=== PATIENT | male | born 1955 | race Caucasian/White ===

== ENCOUNTER 2016-08-17 23:49 | Inpatient (IN) | payer MEDICAID, MEDICARE ==
[~2016-08-17] VITALS: Ht 170.2 cm; Wt 72.6 kg
[~2016-08-17 23:49] MED LIST: AMLO2.5T PO; DSS100 PO; FOLI1 PO; LURA40 PO; MULT-1238 PO; PANT40TA25 PO; SERT50TA12 PO; Sertraline Hcl PO; THIA100 PO
[2016-08-18 00:14] VITALS: BP 152/90
[2016-08-18] MEDS ORDERED: QUEtiapine FUMARATE 100 MG TABLET PO PRN (00:45)
[2016-08-18] MEDS ORDERED: ZOLPIDEM TARTRATE 10 MG TABLET PO PRN (00:45)
[2016-08-18 01:15] VITALS: BP 134/70
[2016-08-18] MEDS: LORazepam 2 MG TABLET PO PRN ×3 (01:53→16:22)
[2016-08-18] MEDS ORDERED: PNEUMOCOCCAL VACCINE POLYVALENT 0.5 ML VIAL [PPSV23] IM ONE (05:00)
[2016-08-18 08:09] VITALS: BP 128/84
[2016-08-18 16:00] VITALS: BP 140/85
[2016-08-18] MEDS: THIAMINE HCL 100 MG TABLET PO SCH (16:22)
[2016-08-18] MEDS: DOCUSATE SODIUM 100 MG CAPSULE PO SCH (16:22)
[2016-08-18] MEDS: SERTRALINE HCL 50 MG TABLET PO SCH (20:35)
[2016-08-19 08:32] VITALS: BP 135/69
[2016-08-19 08:34] LABS: BASOPHILS % (AUTO) 0.1 % (0.0-2.0); EOSINOPHILS % (AUTO) 1.1 % (1.0-6.0); HEMATOCRIT 43.3 % (41-53); HEMOGLOBIN 14.4 g/dL (13.5-17.5); LYMPHOCYTES # (AUTO) 1.6 K/uL (1.0-4.8); LYMPHOCYTES % (AUTO) 21.4 % (22.0-44.0); MEAN CORPUSCULAR HEMOGLOBIN 28.4 pg (26.0-34.0); MEAN CORPUSCULAR HGB CONC 33.2 G/dL (31.0-37.0); MEAN CORPUSCULAR VOLUME 85 fL (80-100); MONOCYTES # (AUTO) 0.5 K/uL (0.1-1.0); MONOCYTES % (AUTO) 7.1 % (2.0-9.0); NEUTROPHILS # (AUTO) 5.2 K/uL (1.8-7.7); NEUTROPHILS % (AUTO) 70.3 % (40.0-70.0); PLATELET COUNT (AUTO) 167 K/uL (150-450); RED BLOOD CELL COUNT(AUTO) 5.07 MIL/uL (4.50-5.90); RED CELL DISTRIBUTION WIDTH 13.3 % (11.5-14.5); WHITE BLOOD COUNT (AUTO) 7.5 K/uL (4.5-11.0)
[2016-08-19 09:26] LABS: ALBUMIN 3.2 g/dL (3.4-5.0); BILIRUBIN,TOTAL 0.6 mg/dL (0.1-1.0); CALCIUM, TOTAL 8.5 mg/dL (8.8-10.5); CHOL/HDL RATIO 2.7 (4.2-7.3); CREATINE KINASE MB 6.2 ng/mL (0-5); CREATININE 1.45 mg/dL (0.60-1.30); MAGNESIUM 1.8 mg/dL (1.80-2.40); POTASSIUM 4.2 mmol/L (3.5-5.1); THYROID STIMULATING HORMONE 0.46 uIU/mL (0.36-3.74); TOTAL PROTEIN, SERUM 6.4 g/dL (6.4-8.2)
[2016-08-19] MEDS: THIAMINE HCL 100 MG TABLET PO SCH ×2 (09:39→16:04)
[2016-08-19] MEDS: MULTIVITAMINS, THERAPEUTIC TABLET PO SCH (09:39)
[2016-08-19] MEDS: DOCUSATE SODIUM 100 MG CAPSULE PO SCH ×2 (09:39→16:04)
[2016-08-19] MEDS: ESCITALOPRAM OXALATE 10 MG TABLET PO SCH (09:40)
[2016-08-19] MEDS: FOLIC ACID 1 MG TABLET PO SCH (09:40)
[2016-08-19] MEDS: PANTOPRAZOLE SODIUM 40 MG DR TABLET PO SCH (09:40)
[2016-08-19] MEDS: AmLODIPine BESYLATE 5 MG TABLET PO SCH (09:41)
[2016-08-19] MEDS: LORazepam 2 MG TABLET PO PRN ×2 (10:09→17:07)
[2016-08-19] MEDS ORDERED: *NON-FORMULARY MED [ENTER DRUG, DOSE, FREQ IN COMMENTS] CLINICAL ONE ×2 (12:00)
[2016-08-19] MEDS: HARVONI PO SCH (16:04)
[2016-08-19 16:08] VITALS: BP 125/62
[2016-08-19] MEDS: SERTRALINE HCL 50 MG TABLET PO SCH (20:42)
[2016-08-20 00:28] VITALS: BP 135/80
[2016-08-20 08:50] VITALS: BP 141/73
[2016-08-20] MEDS: HARVONI PO SCH (09:16)
[2016-08-20] MEDS: FOLIC ACID 1 MG TABLET PO SCH (09:16)
[2016-08-20] MEDS: MULTIVITAMINS, THERAPEUTIC TABLET PO SCH (09:16)
[2016-08-20] MEDS: PANTOPRAZOLE SODIUM 40 MG DR TABLET PO SCH (09:16)
[2016-08-20] MEDS: ESCITALOPRAM OXALATE 10 MG TABLET PO SCH (09:16)
[2016-08-20] MEDS: THIAMINE HCL 100 MG TABLET PO SCH (09:17)
[2016-08-20] MEDS: AmLODIPine BESYLATE 5 MG TABLET PO SCH (09:17)
[2016-08-20] MEDS: DOCUSATE SODIUM 100 MG CAPSULE PO SCH (09:17)
[2016-08-20] MEDS ORDERED: ESCI10TA PO (10:05)
[2016-08-20] MEDS ORDERED: LEDI1TAB PO (10:05)
[2016-08-20 12:23] LABS: HEPATITIS Bs ANTIGEN SCREEN P Negative (Negative); HEPATITIS C AB SCREEN >11.0 s/co ratio (0.0-0.9)
== END 2016-08-20 14:30 | disposition home or self-care (01) | DRG 885 ==
LOC: B3A 08-18 00:52 → B2S 08-19 10:20
DX: F31.4 Bipolar disorder, current episode depressed, severe, without psychotic features (principal); R45.851 Suicidal ideations; F19.20 Other psychoactive substance dependence, uncomplicated; N17.9 Acute kidney failure, unspecified; B19.20 Unspecified viral hepatitis C without hepatic coma; K21.9 Gastro-esophageal reflux disease without esophagitis; K59.00 Constipation, unspecified; F10.10 Alcohol abuse, uncomplicated; F17.210 Nicotine dependence, cigarettes, uncomplicated; I12.9 Hypertensive chronic kidney disease with stage 1 through stage 4 chronic kidney disease, or unspecified chronic kidney disease; N18.9 Chronic kidney disease, unspecified; F15.10 Other stimulant abuse, uncomplicated; F12.10 Cannabis abuse, uncomplicated; Z87.19 Personal history of other diseases of the digestive system; Z88.8 Allergy status to other drugs, medicaments and biological substances; Z79.899 Other long term (current) drug therapy; Z87.730 Personal history of (corrected) cleft lip and palate; Z91.5 Personal history of self-harm; Z82.49 Family history of ischemic heart disease and other diseases of the circulatory system; Z80.3 Family history of malignant neoplasm of breast; Z28.21 Immunization not carried out because of patient refusal
CPT/HCPCS: 80074; 82306; 82607; 82746; 83036; 83735; 84439; 84443; 86592; 87081

== ENCOUNTER 2016-08-21 17:40 | Inpatient (IN) | payer MEDICARE ==
[~2016-08-21] VITALS: Ht 171.4 cm; Wt 71.4 kg
[~2016-08-21 17:40] MED LIST changes: +ESCI10TA PO; -FOLI1 PO; +LEDI1TAB PO; -LURA40 PO; -MULT-1238 PO; -SERT50TA12 PO; -THIA100 PO
[2016-08-21 20:21] LABS: BASOPHILS # (AUTO) 0.03 K/uL (0.00-0.20); BASOPHILS % (AUTO) 0.3 % (0.0-2.0); EOSINOPHILS # (AUTO) 0.05 K/uL (0.00-0.70); EOSINOPHILS % (AUTO) 0.55 % (1.0-6.0); HEMATOCRIT 51.1 % (41-53); LYMPHOCYTES # (AUTO) 2.4 K/uL (1.0-4.8); LYMPHOCYTES % (AUTO) 24.5 % (22.0-44.0); MEAN CORPUSCULAR HEMOGLOBIN 28.2 pg (26.0-34.0); MEAN CORPUSCULAR HGB CONC 33.3 G/dL (31.0-37.0); MEAN CORPUSCULAR VOLUME 85 fL (80-100); MONOCYTES # (AUTO) 0.7 K/uL (0.1-1.0); MONOCYTES % (AUTO) 7.3 % (2.0-9.0); NEUTROPHILS # (AUTO) 6.7 K/uL (1.8-7.7); NEUTROPHILS % (AUTO) 67.5 % (40.0-70.0); PLATELET COUNT (AUTO) 232 K/uL (150-450); RED BLOOD CELL COUNT(AUTO) 6.02 MIL/uL (4.50-5.90); RED CELL DISTRIBUTION WIDTH 13.3 % (11.5-14.5); WHITE BLOOD COUNT (AUTO) 9.9 K/uL (4.5-11.0)
[2016-08-21 20:38] LABS: ANION GAP 11 mmol/L (8-16); CALCIUM, TOTAL 9.2 mg/dL (8.8-10.5); CARBON DIOXIDE 27 mmol/L (22-29); CHLORIDE 101 mmol/L (98-107); GLOMERULAR FILTR. RATE CALC > 60 mL/min (>60); POTASSIUM 4.4 mmol/L (3.5-5.1); SODIUM SERUM 139 mmol/L (136-145); UREA NITROGEN, BLOOD 19 mg/dL (7-18)
[2016-08-21 20:43] LABS: ALANINE AMINOTRANSFERASE 29 U/L (12-78); ALBUMIN 4.3 g/dL (3.4-5.0); ASPARTATE AMINOTRANSFERASE 28 U/L (15-37); BILIRUBIN,TOTAL 0.9 mg/dL (0.1-1.0); TOTAL PROTEIN, SERUM 8.4 g/dL (6.4-8.2)
[2016-08-21] MEDS ORDERED: LORazepam 2 MG TABLET PO ONE (21:45)
[2016-08-21] MEDS ORDERED: AmLODIPine BESYLATE 5 MG TABLET PO ONE (21:45)
[2016-08-21] MEDS ORDERED: ZOLPIDEM TARTRATE 10 MG TABLET PO PRN (22:45)
[2016-08-22 01:51] VITALS: BP 128/90
[2016-08-22] MEDS: LORazepam 2 MG TABLET PO PRN ×3 (01:55→15:27)
[2016-08-22 09:00] VITALS: BP 108/59
[2016-08-22] MEDS ORDERED: *PATIENT'S OWN MED [ENTER DRUG, DOSE, FREQUENCY IN COMMENTS] CLINICAL SCH ×2 (09:00)
[2016-08-22] MEDS: LEDIPASVIR PO SCH (11:16)
[2016-08-22] MEDS: SOFOSBUVIR PO SCH (11:16)
[2016-08-22] MEDS: DOCUSATE SODIUM 100 MG CAPSULE PO SCH (15:59)
[2016-08-22 16:05] VITALS: BP 101/68
[2016-08-22 17:42] LABS: APPEARANCE,URINE CLEAR (CLEAR); GLUCOSE, URINE (UA) NEGATIVE (NEGATIVE); KETONES,URINE NEGATIVE (NEGATIVE); LEUKOCYTE ESTERASE ,URINE NEGATIVE (NEGATIVE); OCCULT BLOOD,URINE NEGATIVE (NEGATIVE); PROTEIN,URINE NEGATIVE (NEGATIVE)
[2016-08-22 17:43] LABS: ADD UA MICROSCOPIC NO
[2016-08-23] MEDS ORDERED: ACETAMINOPHEN 325 MG TABLET PO PRN (06:45)
[2016-08-23] MEDS: DOCUSATE SODIUM 100 MG CAPSULE PO SCH ×2 (08:34→17:26)
[2016-08-23] MEDS: PANTOPRAZOLE SODIUM 40 MG DR TABLET PO SCH (08:34)
[2016-08-23] MEDS: ARIPiprazole 5 MG TABLET PO SCH (08:34)
[2016-08-23] MEDS: AmLODIPine BESYLATE 5 MG TABLET PO SCH (08:35)
[2016-08-23] MEDS: SOFOSBUVIR PO SCH (08:36)
[2016-08-23] MEDS: LEDIPASVIR PO SCH (08:36)
[2016-08-23] MEDS: ESCITALOPRAM OXALATE 20 MG TABLET PO SCH (08:36)
[2016-08-23] MEDS ORDERED: [UNRECOGNIZED DRUG - OTHER] PO SCH (09:00)
[2016-08-23 09:32] VITALS: BP 131/77
[2016-08-23] MEDS: QUEtiapine FUMARATE 100 MG TABLET PO PRN (10:33)
[2016-08-23 21:33] VITALS: BP 109/74
[2016-08-24] MEDS: PANTOPRAZOLE SODIUM 40 MG DR TABLET PO SCH (08:34)
[2016-08-24] MEDS: AmLODIPine BESYLATE 5 MG TABLET PO SCH (08:34)
[2016-08-24] MEDS: ARIPiprazole 5 MG TABLET PO SCH (08:35)
[2016-08-24] MEDS: SOFOSBUVIR PO SCH (08:35)
[2016-08-24] MEDS: LEDIPASVIR PO SCH (08:35)
[2016-08-24] MEDS: ESCITALOPRAM OXALATE 20 MG TABLET PO SCH (08:35)
[2016-08-24] MEDS: DOCUSATE SODIUM 100 MG CAPSULE PO SCH ×2 (08:35→16:20)
[2016-08-24 10:26] VITALS: BP 142/83
[2016-08-24] MEDS: QUEtiapine FUMARATE 100 MG TABLET PO PRN (12:36)
[2016-08-24] MEDS ORDERED: GuaiFENesin/D-METHORPHAN [SUGAR-FREE] 200-20MG/10 ML SYRUP UDCUP PO PRN (13:15)
[2016-08-24] MEDS ORDERED: HydrOXYzine PAMOATE 50 MG CAPSULE PO PRN (13:15)
[2016-08-24] MEDS ORDERED: ACETAMINOPHEN 325 MG TABLET PO PRN (13:15)
[2016-08-24] MEDS ORDERED: PROMETHAZINE HCL 25 MG TABLET PO PRN (13:15)
[2016-08-24] MEDS ORDERED: MAGNESIUM HYDROXIDE SUSPENSION 30 ML UDCUP PO PRN (13:15)
[2016-08-24] MEDS ORDERED: LOPERAMIDE HCL 2 MG CAPSULE PO PRN (13:15)
[2016-08-24] MEDS ORDERED: MAG HYDROX/AL HYDROX/SIMETH ES 30 ML SUSPENSION UDCUP PO PRN (13:15)
[2016-08-24] MEDS: THIAMINE HCL 100 MG TABLET PO SCH (16:20)
[2016-08-24 18:00] VITALS: BP 124/76
[2016-08-25] MEDS: SOFOSBUVIR PO SCH (08:18)
[2016-08-25] MEDS: LEDIPASVIR PO SCH (08:18)
[2016-08-25] MEDS: DOCUSATE SODIUM 100 MG CAPSULE PO SCH (08:18)
[2016-08-25] MEDS: ARIPiprazole 10 MG TABLET PO SCH (08:18)
[2016-08-25] MEDS: ESCITALOPRAM OXALATE 20 MG TABLET PO SCH (08:19)
[2016-08-25] MEDS: MULTIVITAMINS WITH MINERALS, THERAPEUTIC TABLET PO SCH (08:19)
[2016-08-25] MEDS: AmLODIPine BESYLATE 5 MG TABLET PO SCH (08:19)
[2016-08-25] MEDS: PANTOPRAZOLE SODIUM 40 MG DR TABLET PO SCH (08:19)
[2016-08-25] MEDS: FOLIC ACID 1 MG TABLET PO SCH (08:19)
[2016-08-25] MEDS: THIAMINE HCL 100 MG TABLET PO SCH (08:20)
[2016-08-25] MEDS ORDERED: IBUPROFEN 600 MG TABLET PO PRN (09:00)
[2016-08-25 09:42] VITALS: BP 154/76
[2016-08-25] MEDS ORDERED: ACETAMINOPHEN 325 MG TABLET PO PRN (11:15)
[2016-08-25] MEDS ORDERED: ARIP10TA14 PO (12:51)
[2016-08-25] MEDS ORDERED: ESCI20TA PO (12:51)
[2016-08-25] MEDS: QUEtiapine FUMARATE 100 MG TABLET PO PRN (18:03)
[2016-08-25 18:21] VITALS: BP 148/90
[2016-08-26] MEDS: MULTIVITAMINS WITH MINERALS, THERAPEUTIC TABLET PO SCH (08:34)
[2016-08-26] MEDS: FOLIC ACID 1 MG TABLET PO SCH (08:35)
[2016-08-26] MEDS: AmLODIPine BESYLATE 5 MG TABLET PO SCH (08:35)
[2016-08-26] MEDS: ESCITALOPRAM OXALATE 20 MG TABLET PO SCH (08:35)
[2016-08-26] MEDS: ARIPiprazole 10 MG TABLET PO SCH (08:35)
[2016-08-26] MEDS: PANTOPRAZOLE SODIUM 40 MG DR TABLET PO SCH (08:35)
[2016-08-26] MEDS: LEDIPASVIR PO SCH (08:36)
[2016-08-26] MEDS: SOFOSBUVIR PO SCH (08:36)
[2016-08-26] MEDS: DOCUSATE SODIUM 100 MG CAPSULE PO SCH (08:36)
[2016-08-26] MEDS: THIAMINE HCL 100 MG TABLET PO SCH (08:37)
[2016-08-26] MEDS ORDERED: MV-M1TAB2 PO (08:41)
[2016-08-26] MEDS ORDERED: FOLI1 PO (08:41)
[2016-08-26] MEDS ORDERED: THIA100 PO (08:41)
[2016-08-26 10:19] VITALS: BP 128/84
== END 2016-08-26 14:15 | disposition home or self-care (01) | DRG 885 ==
LOC: EMS 17:44 → 3EX 22:30
PROVIDERS: ADMIT Psychiatry & Neurology Psychiatry; ATTEND Psychiatry & Neurology Psychiatry
PROC: GZ51ZZZ Individual Psychotherapy, Behavioral (ICD-10-PCS; principal; 2016-08-21)
DX: F33.2 Major depressive disorder, recurrent severe without psychotic features (principal); R45.851 Suicidal ideations; F15.20 Other stimulant dependence, uncomplicated; F25.0 Schizoaffective disorder, bipolar type; B19.20 Unspecified viral hepatitis C without hepatic coma; K21.9 Gastro-esophageal reflux disease without esophagitis; I51.9 Heart disease, unspecified; E78.00 Pure hypercholesterolemia, unspecified; F41.9 Anxiety disorder, unspecified; K59.00 Constipation, unspecified; K80.20 Calculus of gallbladder without cholecystitis without obstruction; K02.9 Dental caries, unspecified; I10 Essential (primary) hypertension; F17.210 Nicotine dependence, cigarettes, uncomplicated; F12.90 Cannabis use, unspecified, uncomplicated; F14.90 Cocaine use, unspecified, uncomplicated; Z71.51 Drug abuse counseling and surveillance of drug abuser; Z91.14 Patient's other noncompliance with medication regimen; Z79.899 Other long term (current) drug therapy; Z88.8 Allergy status to other drugs, medicaments and biological substances; Z98.890 Other specified postprocedural states; Z59.0 Homelessness; Z87.730 Personal history of (corrected) cleft lip and palate; Z91.5 Personal history of self-harm; Z80.3 Family history of malignant neoplasm of breast; Z82.49 Family history of ischemic heart disease and other diseases of the circulatory system
CPT/HCPCS: 87081; 99285; G0480

== ENCOUNTER 2017-11-13 15:49 | Inpatient (IN) | payer MEDICARE ==
[~2017-11-13] VITALS: Ht 170.2 cm; Wt 68.5 kg
[~2017-11-13 15:49] MED LIST changes: +ARIP10TA8 PO; -ESCI10TA PO; +ESCI20TA PO; +FOLI1 PO; +MV-M1TAB2 PO; -Sertraline Hcl PO; +THIA100T67 PO
[2017-11-13 17:08] VITALS: BP 156/91
[2017-11-13] MEDS ORDERED: ZOLPIDEM TARTRATE 10 MG TABLET PO PRN (17:30)
[2017-11-13] MEDS ORDERED: QUEtiapine FUMARATE 100 MG TABLET PO PRN (17:30)
[2017-11-13] MEDS: LORazepam 2 MG TABLET PO PRN (17:53)
[2017-11-13 18:09] VITALS: BP 154/112
[2017-11-13 19:00] VITALS: BP 152/88
[2017-11-13] MEDS: AmLODIPine BESYLATE 5 MG TABLET PO SCH (20:07)
[2017-11-13 21:08] VITALS: BP 143/90
[2017-11-14 08:00] VITALS: BP 155/98
[2017-11-14] MEDS: LORazepam 2 MG TABLET PO PRN (08:01)
[2017-11-14] MEDS: PANTOPRAZOLE SODIUM 40 MG DR TABLET PO SCH (08:02)
[2017-11-14] MEDS: AmLODIPine BESYLATE 5 MG TABLET PO SCH (08:02)
[2017-11-14 08:25] LABS: BASOPHILS % (AUTO) 0.3 % (0.0-2.0); EOSINOPHILS % (AUTO) 1.7 % (1.0-6.0); HEMATOCRIT 48.5 % (41-53); HEMOGLOBIN 17.1 g/dL (13.5-17.5); LYMPHOCYTES # (AUTO) 1.9 K/uL (1.0-4.8); MEAN CORPUSCULAR HEMOGLOBIN 30.1 pg (26.0-34.0); MEAN CORPUSCULAR HGB CONC 35.3 G/dL (31.0-37.0); MEAN CORPUSCULAR VOLUME 85 fL (80-100); MONOCYTES # (AUTO) 0.6 K/uL (0.1-1.0); NEUTROPHILS # (AUTO) 5.6 K/uL (1.8-7.7); PLATELET COUNT (AUTO) 166 K/uL (150-450); RED BLOOD CELL COUNT(AUTO) 5.69 MIL/uL (4.50-5.90); RED CELL DISTRIBUTION WIDTH 13.9 % (11.5-14.5)
[2017-11-14 09:05] LABS: ALANINE AMINOTRANSFERASE 26 U/L (12-78); ALBUMIN 3.6 g/dL (3.4-5.0); ALKALINE PHOSPHATASE 77 U/L (46-116); ANION GAP 6 mmol/L (8-16); ASPARTATE AMINOTRANSFERASE 26 U/L (15-37); BILIRUBIN,TOTAL 0.5 mg/dL (0.1-1.0); CALCIUM, TOTAL 8.4 mg/dL (8.8-10.5); CARBON DIOXIDE 29 mmol/L (22-29); CHLORIDE 104 mmol/L (98-107); CHOL/HDL RATIO 2.7 (4.2-7.3); CHOLESTEROL 154 mg/dL (131-200); FREE T4 (FREE THYROXINE) 0.97 ng/dL (0.76-1.46); GLOMERULAR FILTR. RATE CALC > 60 mL/min (>60); GLUCOSE,RANDOM 90 mg/dL (70-110); HDL CHOLESTEROL 57 mg/dL (40-60); LDL CHOL (CALC.) 83 mg/dL (0-130); POTASSIUM 4.1 mmol/L (3.5-5.1); SODIUM SERUM 139 mmol/L (136-145); THYROID STIMULATING HORMONE 1.31 uIU/mL (0.36-3.74); TRIGLYCERIDES 71 mg/dL (15-150); UREA NITROGEN, BLOOD 18 mg/dL (7-18)
[2017-11-14 10:00] VITALS: BP 140/86
[2017-11-14] MEDS: ESCITALOPRAM OXALATE 20 MG TABLET PO SCH (12:36)
[2017-11-14] MEDS: ARIPiprazole 10 MG TABLET PO SCH (12:36)
[2017-11-14] MEDS ORDERED: ACETAMINOPHEN 325 MG TABLET PO PRN (13:15)
[2017-11-14] MEDS ORDERED: IBUPROFEN 400 MG TABLET PO PRN (13:15)
[2017-11-14 16:20] VITALS: BP 158/89
[2017-11-14] MEDS ORDERED: AMLO-511 PO (17:00)
[2017-11-14] MEDS: THIAMINE HCL 100 MG TABLET PO SCH (17:11)
[2017-11-14] MEDS: DOCUSATE SODIUM 100 MG CAPSULE PO SCH (17:11)
[2017-11-14 20:57] VITALS: BP 134/78
[2017-11-15 06:20] VITALS: BP 140/89
[2017-11-15 08:00] VITALS: BP 150/90
[2017-11-15] MEDS: THIAMINE HCL 100 MG TABLET PO SCH ×2 (08:05→16:41)
[2017-11-15] MEDS: ESCITALOPRAM OXALATE 20 MG TABLET PO SCH (08:05)
[2017-11-15] MEDS: MULTIVITAMINS WITH MINERALS, THERAPEUTIC TABLET PO SCH (08:05)
[2017-11-15] MEDS: DOCUSATE SODIUM 100 MG CAPSULE PO SCH ×2 (08:05→16:41)
[2017-11-15] MEDS: ARIPiprazole 10 MG TABLET PO SCH (08:05)
[2017-11-15] MEDS: AmLODIPine BESYLATE 5 MG TABLET PO SCH (08:05)
[2017-11-15] MEDS: PANTOPRAZOLE SODIUM 40 MG DR TABLET PO SCH (08:05)
[2017-11-15] MEDS: ASPIRIN 81 MG CHEWABLE TABLET PO SCH (08:05)
[2017-11-15] MEDS: FOLIC ACID 1 MG TABLET PO SCH (08:05)
[2017-11-15] MEDS: LORazepam 2 MG TABLET PO PRN (08:06)
[2017-11-15] MEDS ORDERED: [UNRECOGNIZED DRUG - OTHER] PO SCH (09:00)
[2017-11-15] MEDS ORDERED: AmLODIPine BESYLATE 2.5 MG TABLET PO SCH (09:00)
[2017-11-15] MEDS ORDERED: PANTOPRAZOLE SODIUM 40 MG DR TABLET PO SCH (09:00)
[2017-11-15 10:30] VITALS: BP 140/86
[2017-11-15 16:06] VITALS: BP 136/84
[2017-11-16 07:19] VITALS: BP 135/9
[2017-11-16 08:00] VITALS: BP 154/90
[2017-11-16] MEDS: AmLODIPine BESYLATE 5 MG TABLET PO SCH (08:25)
[2017-11-16] MEDS: MULTIVITAMINS WITH MINERALS, THERAPEUTIC TABLET PO SCH (08:25)
[2017-11-16] MEDS: ESCITALOPRAM OXALATE 20 MG TABLET PO SCH (08:25)
[2017-11-16] MEDS: PANTOPRAZOLE SODIUM 40 MG DR TABLET PO SCH (08:25)
[2017-11-16] MEDS: FOLIC ACID 1 MG TABLET PO SCH (08:25)
[2017-11-16] MEDS: DOCUSATE SODIUM 100 MG CAPSULE PO SCH ×2 (08:25→16:44)
[2017-11-16] MEDS: ARIPiprazole 10 MG TABLET PO SCH (08:25)
[2017-11-16] MEDS: LORazepam 2 MG TABLET PO PRN (08:25)
[2017-11-16] MEDS: THIAMINE HCL 100 MG TABLET PO SCH ×2 (08:25→16:44)
[2017-11-16] MEDS: ASPIRIN 81 MG CHEWABLE TABLET PO SCH (08:25)
[2017-11-16 10:30] VITALS: BP 153/85
[2017-11-16] MEDS ORDERED: AmLODIPine BESYLATE 5 MG TABLET PO ONE (11:45)
[2017-11-16 14:11] VITALS: BP 132/82
[2017-11-16 16:04] VITALS: BP 145/88
[2017-11-16 19:53] VITALS: BP 139/81
[2017-11-17 06:21] VITALS: BP 141/89
[2017-11-17 08:13] VITALS: BP 140/81
[2017-11-17] MEDS: ASPIRIN 81 MG CHEWABLE TABLET PO SCH (08:32)
[2017-11-17] MEDS: DOCUSATE SODIUM 100 MG CAPSULE PO SCH ×2 (08:32→16:41)
[2017-11-17] MEDS: ARIPiprazole 10 MG TABLET PO SCH (08:32)
[2017-11-17] MEDS: THIAMINE HCL 100 MG TABLET PO SCH ×2 (08:32→16:41)
[2017-11-17] MEDS: FOLIC ACID 1 MG TABLET PO SCH (08:32)
[2017-11-17] MEDS: PANTOPRAZOLE SODIUM 40 MG DR TABLET PO SCH (08:32)
[2017-11-17] MEDS: ESCITALOPRAM OXALATE 20 MG TABLET PO SCH (08:32)
[2017-11-17] MEDS: MULTIVITAMINS WITH MINERALS, THERAPEUTIC TABLET PO SCH (08:32)
[2017-11-17] MEDS ORDERED: MEGESTROL ACETATE 400 MG/10 ML SUSPENSION UDCUP PO SCH (09:00)
[2017-11-17] MEDS ORDERED: AmLODIPine BESYLATE 10 MG TABLET PO SCH (09:00)
[2017-11-17] MEDS ORDERED: ESCI20TA36 PO (10:42)
[2017-11-17] MEDS ORDERED: ARIP10TA8 PO (10:42)
[2017-11-17] MEDS ORDERED: ASPI81TA87 PO (14:46)
== END 2017-11-17 16:45 | disposition home or self-care (01) | DRG 885 ==
LOC: B2X 17:37
PROVIDERS: ADMIT Psychiatry & Neurology Child & Adolescent Psychiatry; ATTEND Psychiatry & Neurology Child & Adolescent Psychiatry
DX: F33.2 Major depressive disorder, recurrent severe without psychotic features (principal); R45.851 Suicidal ideations; F10.10 Alcohol abuse, uncomplicated; R41.83 Borderline intellectual functioning; F41.9 Anxiety disorder, unspecified; K21.9 Gastro-esophageal reflux disease without esophagitis; I10 Essential (primary) hypertension; K80.20 Calculus of gallbladder without cholecystitis without obstruction; K59.09 Other constipation; B19.20 Unspecified viral hepatitis C without hepatic coma; F12.90 Cannabis use, unspecified, uncomplicated; B18.2 Chronic viral hepatitis C; G62.9 Polyneuropathy, unspecified; E78.5 Hyperlipidemia, unspecified; I25.10 Atherosclerotic heart disease of native coronary artery without angina pectoris; E03.9 Hypothyroidism, unspecified; J44.9 Chronic obstructive pulmonary disease, unspecified; Z88.8 Allergy status to other drugs, medicaments and biological substances; Z87.730 Personal history of (corrected) cleft lip and palate; Z80.3 Family history of malignant neoplasm of breast; Z82.49 Family history of ischemic heart disease and other diseases of the circulatory system
CPT/HCPCS: 83036; 84439; 84443; 86592

== ENCOUNTER 2019-07-17 14:05 | Inpatient (IN) | payer MEDICARE ==
[~2019-07-17] VITALS: Ht 167.6 cm; Wt 68.9 kg
[~2019-07-17 14:05] MED LIST changes: -AMLO2.5T PO; +AMLO5TAB9 PO; +ASPI81TA87 PO; -ESCI20TA PO; +ESCI20TA43 PO; -FOLI1 PO; -LEDI1TAB PO; -MV-M1TAB2 PO; -THIA100T67 PO
[2019-07-17] MEDS ORDERED: QUEtiapine FUMARATE 100 MG TABLET PO PRN (15:45)
[2019-07-17] MEDS ORDERED: ZOLPIDEM TARTRATE 10 MG TABLET PO PRN (15:45)
[2019-07-17 15:54] VITALS: BP 108/72
[2019-07-17 16:45] VITALS: BP 138/89
[2019-07-17] MEDS ORDERED: PNEUMOCOCCAL VACCINE POLYVALENT 0.5 ML VIAL [PPSV23] IM ONE (17:30)
[2019-07-17] MEDS ORDERED: INFLUENZA VIRUS VACCINE QVS 2019-20 (3YR+)/PF 60 MCG/0.5 ML SYRINGE IM ONE (17:30)
[2019-07-17] MEDS: LORazepam 2 MG TABLET PO PRN (20:22)
[2019-07-18 02:35] VITALS: BP 140/83
[2019-07-18] MEDS: LORazepam 2 MG TABLET PO PRN ×2 (02:36→11:45)
[2019-07-18 08:19] VITALS: BP 140/90
[2019-07-18 08:48] LABS: BASOPHILS % (AUTO) 0.4 % (0.0-2.0); EOSINOPHILS % (AUTO) 1.4 % (1.0-6.0); HEMATOCRIT 43.5 % (41-53); HEMOGLOBIN 14.7 g/dL (13.5-17.5); LYMPHOCYTES # (AUTO) 1.6 K/uL (1.0-4.8); LYMPHOCYTES % (AUTO) 27.7 % (22.0-44.0); MEAN CORPUSCULAR HEMOGLOBIN 29.9 pg (26.0-34.0); MEAN CORPUSCULAR HGB CONC 33.8 G/dL (31.0-37.0); MEAN CORPUSCULAR VOLUME 88 fL (80-100); MONOCYTES # (AUTO) 0.5 K/uL (0.1-1.0); MONOCYTES % (AUTO) 8.9 % (2.0-9.0); NEUTROPHILS # (AUTO) 3.5 K/uL (1.8-7.7); NEUTROPHILS % (AUTO) 61.6 % (40.0-70.0); PLATELET COUNT (AUTO) 166 K/uL (150-450); RED BLOOD CELL COUNT(AUTO) 4.92 MIL/uL (4.50-5.90); RED CELL DISTRIBUTION WIDTH 14.1 % (11.5-14.5)
[2019-07-18] MEDS: ASPIRIN 81 MG EC TABLET PO SCH (09:05)
[2019-07-18] MEDS: PANTOPRAZOLE SODIUM 40 MG DR TABLET PO SCH (09:05)
[2019-07-18] MEDS: AmLODIPine BESYLATE 10 MG TABLET PO SCH (09:05)
[2019-07-18 09:21] LABS: ALANINE AMINOTRANSFERASE 27 U/L (12-78); ALBUMIN 3.4 g/dL (3.4-5.0); ALKALINE PHOSPHATASE 80 U/L (46-116); ANION GAP 6 mmol/L (8-16); ASPARTATE AMINOTRANSFERASE 24 U/L (15-37); BILIRUBIN,TOTAL 0.4 mg/dL (0.1-1.0); CALCIUM, TOTAL 8.6 mg/dL (8.8-10.5); CARBON DIOXIDE 30 mmol/L (22-29); CHLORIDE 103 mmol/L (98-107); CHOL/HDL RATIO 2.7 (4.2-7.3); CHOLESTEROL 147 mg/dL (131-200); CREATININE 1.07 mg/dL (0.60-1.30); FREE T4 (FREE THYROXINE) 0.89 ng/dL (0.76-1.46); GLOMERULAR FILTR. RATE CALC > 60 mL/min (>60); GLUCOSE,RANDOM 95 mg/dL (70-110); HDL CHOLESTEROL 55 mg/dL (40-60); LDL CHOL (CALC.) 75 mg/dL (0-130); POTASSIUM 4.1 mmol/L (3.5-5.1); SODIUM SERUM 139 mmol/L (136-145); THYROID STIMULATING HORMONE 1.93 uIU/mL (0.36-3.74); TOTAL PROTEIN, SERUM 6.3 g/dL (6.4-8.2); TRIGLYCERIDES 84 mg/dL (15-150); UREA NITROGEN, BLOOD 25 mg/dL (7-18)
[2019-07-18 09:24] LABS: HEMOGLOBIN A1C 6.1 % (4.5-6.2)
[2019-07-18] MEDS ORDERED: ACETAMINOPHEN 325 MG TABLET PO PRN (10:15)
[2019-07-18] MEDS ORDERED: LOPERAMIDE HCL 2 MG CAPSULE PO PRN (10:15)
[2019-07-18] MEDS ORDERED: PETROLATUM,WHITE 28 GM JELLY TP PRN (10:15)
[2019-07-18] MEDS ORDERED: CloNIDine HCL 0.1 MG TABLET PO PRN (10:15)
[2019-07-18] MEDS ORDERED: DOCUSATE SODIUM 100 MG CAPSULE PO PRN (10:15)
[2019-07-18] MEDS ORDERED: MAG HYDROX/AL HYDROX/SIMETH ES 30 ML SUSPENSION UDCUP PO PRN (10:15)
[2019-07-18] MEDS ORDERED: GuaiFENesin/D-METHORPHAN [SUGAR-FREE] 200-20MG/10 ML SYRUP UDCUP PO PRN (10:15)
[2019-07-18] MEDS ORDERED: MAGNESIUM HYDROXIDE SUSPENSION 30 ML UDCUP PO PRN (10:15)
[2019-07-18] MEDS ORDERED: IBUPROFEN 400 MG TABLET PO PRN (10:15)
[2019-07-18] MEDS ORDERED: NICOTINE 14 MG/24 HOUR PATCH TD PRN (10:15)
[2019-07-18] MEDS ORDERED: ALBUTEROL SULFATE HFA 90 MCG/PUFF 8 GM INHALER IH PRN (10:15)
[2019-07-18] MEDS ORDERED: ONDANSETRON HCL 4 MG TABLET PO PRN (10:15)
[2019-07-18] MEDS: ARIPiprazole 15 MG TABLET PO SCH (11:30)
[2019-07-18] MEDS: ESCITALOPRAM OXALATE 20 MG TABLET PO SCH (11:30)
[2019-07-18 12:30] VITALS: BP 154/101
[2019-07-18 14:00] VITALS: BP 126/88
[2019-07-18 17:58] VITALS: BP 139/86
[2019-07-19 08:23] VITALS: BP 140/90
[2019-07-19] MEDS: ASPIRIN 81 MG EC TABLET PO SCH (08:40)
[2019-07-19] MEDS: ESCITALOPRAM OXALATE 20 MG TABLET PO SCH (08:40)
[2019-07-19] MEDS: PANTOPRAZOLE SODIUM 40 MG DR TABLET PO SCH (08:40)
[2019-07-19] MEDS: AmLODIPine BESYLATE 10 MG TABLET PO SCH (08:40)
[2019-07-19] MEDS: ARIPiprazole 15 MG TABLET PO SCH (08:40)
[2019-07-19 12:50] VITALS: BP 130/80
[2019-07-19 16:09] VITALS: BP 129/69
[2019-07-20 08:33] VITALS: BP 140/87
[2019-07-20] MEDS: PANTOPRAZOLE SODIUM 40 MG DR TABLET PO SCH (08:47)
[2019-07-20] MEDS: ESCITALOPRAM OXALATE 20 MG TABLET PO SCH (08:47)
[2019-07-20] MEDS: AmLODIPine BESYLATE 10 MG TABLET PO SCH (08:47)
[2019-07-20] MEDS: ARIPiprazole 15 MG TABLET PO SCH (08:47)
[2019-07-20] MEDS: ASPIRIN 81 MG EC TABLET PO SCH (08:52)
[2019-07-20 16:12] VITALS: BP 134/91
[2019-07-21 01:30] VITALS: BP 143/66
[2019-07-21 08:33] VITALS: BP 139/82
[2019-07-21] MEDS: PANTOPRAZOLE SODIUM 40 MG DR TABLET PO SCH (09:06)
[2019-07-21] MEDS: AmLODIPine BESYLATE 10 MG TABLET PO SCH (09:06)
[2019-07-21] MEDS: ARIPiprazole 15 MG TABLET PO SCH (09:06)
[2019-07-21] MEDS: ESCITALOPRAM OXALATE 20 MG TABLET PO SCH (09:06)
[2019-07-21] MEDS: ASPIRIN 81 MG EC TABLET PO SCH (09:06)
[2019-07-21] MEDS: LORazepam 2 MG TABLET PO PRN (11:04)
[2019-07-21 16:07] VITALS: BP 132/85
[2019-07-22 00:12] VITALS: BP 144/83
[2019-07-22 08:15] VITALS: BP 139/76
[2019-07-22] MEDS: ESCITALOPRAM OXALATE 20 MG TABLET PO SCH (09:18)
[2019-07-22] MEDS: PANTOPRAZOLE SODIUM 40 MG DR TABLET PO SCH (09:19)
[2019-07-22] MEDS: AmLODIPine BESYLATE 10 MG TABLET PO SCH (09:19)
[2019-07-22] MEDS: ASPIRIN 81 MG EC TABLET PO SCH (09:19)
[2019-07-22] MEDS: ARIPiprazole 15 MG TABLET PO SCH (09:20)
[2019-07-22] MEDS: LORazepam 2 MG TABLET PO PRN (10:37)
[2019-07-22 16:12] VITALS: BP 134/73
[2019-07-23 05:33] VITALS: BP 150/70
[2019-07-23 08:23] VITALS: BP 155/93
[2019-07-23] MEDS: PANTOPRAZOLE SODIUM 40 MG DR TABLET PO SCH (09:00)
[2019-07-23] MEDS: ARIPiprazole 15 MG TABLET PO SCH (09:00)
[2019-07-23] MEDS: AmLODIPine BESYLATE 10 MG TABLET PO SCH (09:00)
[2019-07-23] MEDS: ASPIRIN 81 MG EC TABLET PO SCH (09:00)
[2019-07-23] MEDS: ESCITALOPRAM OXALATE 20 MG TABLET PO SCH (09:00)
[2019-07-23] MEDS: LORazepam 2 MG TABLET PO PRN (10:12)
[2019-07-23 11:12] VITALS: BP 121/60
[2019-07-23 16:06] VITALS: BP 130/83
[2019-07-24 00:56] VITALS: BP 117/68
[2019-07-24] MEDS: LORazepam 2 MG TABLET PO PRN ×2 (01:09→16:54)
[2019-07-24] MEDS: PANTOPRAZOLE SODIUM 40 MG DR TABLET PO SCH (08:12)
[2019-07-24] MEDS: ARIPiprazole 15 MG TABLET PO SCH (08:12)
[2019-07-24] MEDS: AmLODIPine BESYLATE 10 MG TABLET PO SCH (08:12)
[2019-07-24] MEDS: ESCITALOPRAM OXALATE 20 MG TABLET PO SCH (08:13)
[2019-07-24] MEDS: ASPIRIN 81 MG EC TABLET PO SCH (08:13)
[2019-07-24 08:20] VITALS: BP 123/71
[2019-07-24 16:06] VITALS: BP 139/81
[2019-07-25 01:12] VITALS: BP 130/83
[2019-07-25 08:08] VITALS: BP 142/79
[2019-07-25] MEDS: ESCITALOPRAM OXALATE 20 MG TABLET PO SCH (08:32)
[2019-07-25] MEDS: PANTOPRAZOLE SODIUM 40 MG DR TABLET PO SCH (08:32)
[2019-07-25] MEDS: ASPIRIN 81 MG EC TABLET PO SCH (08:32)
[2019-07-25] MEDS: ARIPiprazole 15 MG TABLET PO SCH (08:32)
[2019-07-25] MEDS: AmLODIPine BESYLATE 10 MG TABLET PO SCH (08:32)
[2019-07-25] MEDS: LORazepam 2 MG TABLET PO PRN (15:44)
[2019-07-25 16:08] VITALS: BP 137/72
[2019-07-26 00:20] VITALS: BP 110/63
[2019-07-26] MEDS: LORazepam 2 MG TABLET PO PRN (05:03)
[2019-07-26 08:22] VITALS: BP 129/67
[2019-07-26] MEDS: ASPIRIN 81 MG EC TABLET PO SCH (08:22)
[2019-07-26] MEDS: ESCITALOPRAM OXALATE 20 MG TABLET PO SCH (08:22)
[2019-07-26] MEDS: AmLODIPine BESYLATE 10 MG TABLET PO SCH (08:22)
[2019-07-26] MEDS: PANTOPRAZOLE SODIUM 40 MG DR TABLET PO SCH (08:22)
[2019-07-26] MEDS: ARIPiprazole 15 MG TABLET PO SCH (08:22)
[2019-07-26] MEDS ORDERED: ASPI-728 PO (10:25)
[2019-07-26] MEDS ORDERED: ARIP15TA2 PO (10:25)
[2019-07-26] MEDS ORDERED: PANT40TA25 PO (10:25)
== END 2019-07-26 13:20 | disposition home or self-care (01) | DRG 885 ==
LOC: B2X 16:00
PROVIDERS: ADMIT Psychiatry & Neurology Child & Adolescent Psychiatry; ATTEND Psychiatry & Neurology Child & Adolescent Psychiatry
DX: F33.2 Major depressive disorder, recurrent severe without psychotic features (principal); B18.2 Chronic viral hepatitis C; R45.851 Suicidal ideations; E03.9 Hypothyroidism, unspecified; J44.9 Chronic obstructive pulmonary disease, unspecified; K21.9 Gastro-esophageal reflux disease without esophagitis; K59.00 Constipation, unspecified; I10 Essential (primary) hypertension; F15.90 Other stimulant use, unspecified, uncomplicated; F32.9 Major depressive disorder, single episode, unspecified; F12.90 Cannabis use, unspecified, uncomplicated; F41.9 Anxiety disorder, unspecified; Z87.730 Personal history of (corrected) cleft lip and palate; Z23 Encounter for immunization
CPT/HCPCS: 83036; 84439; 84443; 90686; 90732

== ENCOUNTER 2019-08-21 08:37 | Inpatient (IN) | payer MEDICARE, MEDICAID ==
[~2019-08-21] VITALS: Ht 172.7 cm; Wt 72.3 kg
[~2019-08-21 08:37] MED LIST changes: -ARIP10TA8 PO; +ARIP15TA2 PO; +ASPI-728 PO; -ASPI81TA87 PO; -DSS100 PO
[2019-08-21 09:25] LABS: BASOPHILS % (AUTO) 0.4 % (0.0-2.0); EOSINOPHILS % (AUTO) 0.6 % (1.0-6.0); HEMATOCRIT 49.4 % (41-53); HEMOGLOBIN 16.4 g/dL (13.5-17.5); LYMPHOCYTES # (AUTO) 1.2 K/uL (1.0-4.8); LYMPHOCYTES % (AUTO) 14.1 % (22.0-44.0); MEAN CORPUSCULAR HEMOGLOBIN 29.2 pg (26.0-34.0); MEAN CORPUSCULAR HGB CONC 33.3 G/dL (31.0-37.0); MEAN CORPUSCULAR VOLUME 88 fL (80-100); MONOCYTES # (AUTO) 0.4 K/uL (0.1-1.0); NEUTROPHILS # (AUTO) 6.9 K/uL (1.8-7.7); NEUTROPHILS % (AUTO) 79.9 % (40.0-70.0); RED BLOOD CELL COUNT(AUTO) 5.63 MIL/uL (4.50-5.90); RED CELL DISTRIBUTION WIDTH 13.7 % (11.5-14.5)
[2019-08-21 09:32] LABS: ANION GAP 6 mmol/L (8-16); CALCIUM, TOTAL 9.8 mg/dL (8.8-10.5); CARBON DIOXIDE 30 mmol/L (22-29); CHLORIDE 100 mmol/L (98-107); CREATININE 1.32 mg/dL (0.60-1.30); GLOMERULAR FILTR. RATE CALC 54 mL/min (>60); GLUCOSE,RANDOM 188 mg/dL (70-110); POTASSIUM 4.2 mmol/L (3.5-5.1); SODIUM SERUM 136 mmol/L (136-145); UREA NITROGEN, BLOOD 19 mg/dL (7-18)
[2019-08-21 09:32] LABS: AMPHET/METH SCREEN,URINE POSITIVE (NEGATIVE); BARBITURATE SCREEN, URINE NEGATIVE (NEGATIVE); BENZODIAZEPINES SCREEN,URINE NEGATIVE (NEGATIVE); CANNABINOID SCREEN,URINE POSITIVE (NEGATIVE); COCAINE SCREEN,URINE NEGATIVE (NEGATIVE); METHADONE SCREEN, URINE NEGATIVE (NEGATIVE); OPIATE SCREEN,URINE NEGATIVE (NEGATIVE); PHENCYCLIDINE SCREEN,URINE NEGATIVE (NEGATIVE)
[2019-08-21 09:37] LABS: ALANINE AMINOTRANSFERASE 37 U/L (12-78); ALBUMIN 4.2 g/dL (3.4-5.0); ALKALINE PHOSPHATASE 92 U/L (46-116); ASPARTATE AMINOTRANSFERASE 36 U/L (15-37); BILIRUBIN,TOTAL 0.8 mg/dL (0.1-1.0); TOTAL PROTEIN, SERUM 8.2 g/dL (6.4-8.2)
[2019-08-21 09:40] LABS: PLATELET COUNT (AUTO) 211 K/uL (150-450)
[2019-08-21] MEDS ORDERED: 0.9% SODIUM CHLORIDE 10 ML SYRINGE IVP PRN (10:45)
[2019-08-21] MEDS ORDERED: ACETAMINOPHEN 325 MG TABLET PO PRN ×2 (10:45→11:15)
[2019-08-21] MEDS ORDERED: ONDANSETRON HCL 4 MG/2 ML VIAL IVP PRN (10:45)
[2019-08-21] MEDS ORDERED: GuaiFENesin/D-METHORPHAN [SUGAR-FREE] 200-20MG/10 ML SYRUP UDCUP PO PRN (11:15)
[2019-08-21] MEDS ORDERED: OLANZapine 5 MG RAPDIS TABLET PO PRN (11:15)
[2019-08-21] MEDS ORDERED: TUBERCULIN, PURIFIED PROTEIN DERIVATIVE 5 TU/0.1 ML SYRINGE ID ONE (11:15)
[2019-08-21] MEDS ORDERED: LOPERAMIDE HCL 2 MG CAPSULE PO PRN (11:15)
[2019-08-21] MEDS ORDERED: HydrOXYzine PAMOATE 50 MG CAPSULE PO PRN (11:15)
[2019-08-21] MEDS ORDERED: ZOLPIDEM TARTRATE 10 MG TABLET PO PRN (11:15)
[2019-08-21] MEDS ORDERED: MAG HYDROX/AL HYDROX/SIMETH ES 30 ML SUSPENSION UDCUP PO PRN (11:15)
[2019-08-21] MEDS ORDERED: PROMETHAZINE HCL 25 MG TABLET PO PRN (11:15)
[2019-08-21] MEDS ORDERED: MAGNESIUM HYDROXIDE SUSPENSION 30 ML UDCUP PO PRN (11:15)
[2019-08-21] MEDS ORDERED: AMLO10TA7 PO (11:17)
[2019-08-21 13:38] VITALS: BP 131/82
[2019-08-21] MEDS ORDERED: QUEtiapine FUMARATE 100 MG TABLET PO PRN (14:00)
[2019-08-21] MEDS: LORazepam 2 MG TABLET PO PRN ×2 (14:24→18:44)
[2019-08-21] MEDS: THIAMINE HCL 100 MG TABLET PO SCH (16:48)
[2019-08-21 17:36] VITALS: BP 122/69
[2019-08-21] MEDS ORDERED: QUEtiapine FUMARATE 200 MG TABLET PO SCH (21:00)
[2019-08-22 08:10] VITALS: BP 130/70
[2019-08-22 08:17] LABS: HEMOGLOBIN A1C 5.8 % (3.8-5.6)
[2019-08-22 08:31] LABS: CHOL/HDL RATIO 3.1 (4.2-7.3); FREE T4 (FREE THYROXINE) 1.12 ng/dL (0.76-1.46); THYROID STIMULATING HORMONE 1.56 uIU/mL (0.36-3.74)
[2019-08-22] MEDS ORDERED: ESCITALOPRAM OXALATE 10 MG TABLET PO SCH (09:00)
[2019-08-22] MEDS ORDERED: ARIPiprazole 15 MG TABLET PO SCH (09:00)
[2019-08-22] MEDS: MULTIVITAMINS WITH MINERALS, THERAPEUTIC TABLET PO SCH (09:09)
[2019-08-22] MEDS: FOLIC ACID 1 MG TABLET PO SCH (09:09)
[2019-08-22] MEDS: ASPIRIN 81 MG CHEWABLE TABLET PO SCH (09:09)
[2019-08-22] MEDS: AmLODIPine BESYLATE 10 MG TABLET PO SCH (09:09)
[2019-08-22] MEDS: THIAMINE HCL 100 MG TABLET PO SCH ×2 (09:09→16:30)
[2019-08-22] MEDS: PANTOPRAZOLE SODIUM 40 MG DR TABLET PO SCH (09:15)
[2019-08-22] MEDS: NALTREXONE HCL 50 MG TABLET PO SCH (09:51)
[2019-08-22] MEDS: LORazepam 2 MG TABLET PO PRN (11:59)
[2019-08-22 16:10] VITALS: BP 126/74
[2019-08-22] MEDS ORDERED: QUEtiapine FUMARATE 300 MG TABLET PO SCH (21:00)
[2019-08-23 00:39] VITALS: BP 110/72
[2019-08-23 08:36] VITALS: BP 141/83
[2019-08-23] MEDS: PANTOPRAZOLE SODIUM 40 MG DR TABLET PO SCH (09:06)
[2019-08-23] MEDS: MULTIVITAMINS WITH MINERALS, THERAPEUTIC TABLET PO SCH (09:06)
[2019-08-23] MEDS: AmLODIPine BESYLATE 10 MG TABLET PO SCH (09:07)
[2019-08-23] MEDS: FOLIC ACID 1 MG TABLET PO SCH (09:07)
[2019-08-23] MEDS: QUEtiapine FUMARATE 25 MG TABLET PO SCH ×3 (09:07→16:29)
[2019-08-23] MEDS: NALTREXONE HCL 50 MG TABLET PO SCH (09:07)
[2019-08-23] MEDS: THIAMINE HCL 100 MG TABLET PO SCH ×2 (09:07→16:30)
[2019-08-23] MEDS: ASPIRIN 81 MG CHEWABLE TABLET PO SCH (09:07)
[2019-08-23] MEDS: LORazepam 2 MG TABLET PO PRN ×2 (12:05→12:06)
[2019-08-23 16:27] VITALS: BP 143/73
[2019-08-23] MEDS: QUEtiapine FUMARATE 200 MG TABLET PO SCH (20:31)
[2019-08-24 05:24] VITALS: BP 132/78
[2019-08-24 08:22] VITALS: BP 132/84
[2019-08-24] MEDS: MULTIVITAMINS WITH MINERALS, THERAPEUTIC TABLET PO SCH (09:25)
[2019-08-24] MEDS: PANTOPRAZOLE SODIUM 40 MG DR TABLET PO SCH (09:25)
[2019-08-24] MEDS: NALTREXONE HCL 50 MG TABLET PO SCH (09:25)
[2019-08-24] MEDS: FOLIC ACID 1 MG TABLET PO SCH (09:26)
[2019-08-24] MEDS: AmLODIPine BESYLATE 10 MG TABLET PO SCH (09:26)
[2019-08-24] MEDS: QUEtiapine FUMARATE 25 MG TABLET PO SCH ×3 (09:26→16:55)
[2019-08-24] MEDS: THIAMINE HCL 100 MG TABLET PO SCH ×2 (09:26→16:55)
[2019-08-24] MEDS: ASPIRIN 81 MG CHEWABLE TABLET PO SCH (09:26)
[2019-08-24 16:25] VITALS: BP 133/99
[2019-08-24] MEDS: QUEtiapine FUMARATE 200 MG TABLET PO SCH (21:09)
[2019-08-25 06:18] VITALS: BP 129/73
[2019-08-25 08:07] VITALS: BP 138/97
[2019-08-25] MEDS: PANTOPRAZOLE SODIUM 40 MG DR TABLET PO SCH (09:24)
[2019-08-25] MEDS: MULTIVITAMINS WITH MINERALS, THERAPEUTIC TABLET PO SCH (09:24)
[2019-08-25] MEDS: QUEtiapine FUMARATE 25 MG TABLET PO SCH ×3 (09:24→16:31)
[2019-08-25] MEDS: THIAMINE HCL 100 MG TABLET PO SCH ×2 (09:24→16:36)
[2019-08-25] MEDS: ASPIRIN 81 MG CHEWABLE TABLET PO SCH (09:24)
[2019-08-25] MEDS: NALTREXONE HCL 50 MG TABLET PO SCH (09:24)
[2019-08-25] MEDS: AmLODIPine BESYLATE 10 MG TABLET PO SCH (09:24)
[2019-08-25] MEDS: FOLIC ACID 1 MG TABLET PO SCH (09:25)
[2019-08-25 16:16] VITALS: BP 142/81
[2019-08-25] MEDS: LORazepam 2 MG TABLET PO PRN (16:58)
[2019-08-25] MEDS: QUEtiapine FUMARATE 200 MG TABLET PO SCH (20:40)
[2019-08-26 08:28] VITALS: BP 140/80
[2019-08-26] MEDS: MULTIVITAMINS WITH MINERALS, THERAPEUTIC TABLET PO SCH (09:36)
[2019-08-26] MEDS: ASPIRIN 81 MG CHEWABLE TABLET PO SCH (09:36)
[2019-08-26] MEDS: FOLIC ACID 1 MG TABLET PO SCH (09:36)
[2019-08-26] MEDS: NALTREXONE HCL 50 MG TABLET PO SCH (09:36)
[2019-08-26] MEDS: PANTOPRAZOLE SODIUM 40 MG DR TABLET PO SCH (09:36)
[2019-08-26] MEDS: AmLODIPine BESYLATE 10 MG TABLET PO SCH (09:36)
[2019-08-26] MEDS: THIAMINE HCL 100 MG TABLET PO SCH ×2 (09:36→16:34)
[2019-08-26] MEDS: QUEtiapine FUMARATE 25 MG TABLET PO SCH ×3 (09:36→16:34)
[2019-08-26 16:19] VITALS: BP 138/82
[2019-08-26] MEDS: QUEtiapine FUMARATE 200 MG TABLET PO SCH (20:28)
[2019-08-27 05:48] VITALS: BP 131/72
[2019-08-27 08:29] VITALS: BP 134/85
[2019-08-27] MEDS: MULTIVITAMINS WITH MINERALS, THERAPEUTIC TABLET PO SCH (08:50)
[2019-08-27] MEDS: AmLODIPine BESYLATE 10 MG TABLET PO SCH (08:50)
[2019-08-27] MEDS: QUEtiapine FUMARATE 25 MG TABLET PO SCH ×2 (08:50→12:03)
[2019-08-27] MEDS: THIAMINE HCL 100 MG TABLET PO SCH (08:50)
[2019-08-27] MEDS: FOLIC ACID 1 MG TABLET PO SCH (08:50)
[2019-08-27] MEDS: ASPIRIN 81 MG CHEWABLE TABLET PO SCH (08:50)
[2019-08-27] MEDS: PANTOPRAZOLE SODIUM 40 MG DR TABLET PO SCH (08:50)
[2019-08-27] MEDS: NALTREXONE HCL 50 MG TABLET PO SCH (08:51)
[2019-08-27] MEDS ORDERED: NALT50TA6 PO (13:33)
[2019-08-27] MEDS ORDERED: QUET200T PO (13:33)
[2019-08-27] MEDS ORDERED: QUET25TA PO (13:33)
[2019-08-27 16:23] VITALS: BP 143/80
== END 2019-08-27 18:51 | disposition home or self-care (01) | DRG 885 ==
LOC: EMS 08:38 → B2X 11:04
PROVIDERS: ADMIT Psychiatry & Neurology Psychiatry; ATTEND Psychiatry & Neurology Psychiatry
DX: F25.0 Schizoaffective disorder, bipolar type (principal); I11.0 Hypertensive heart disease with heart failure; B18.2 Chronic viral hepatitis C; R45.851 Suicidal ideations; E03.9 Hypothyroidism, unspecified; E78.00 Pure hypercholesterolemia, unspecified; F12.90 Cannabis use, unspecified, uncomplicated; F15.90 Other stimulant use, unspecified, uncomplicated; F17.200 Nicotine dependence, unspecified, uncomplicated; F41.9 Anxiety disorder, unspecified; I50.9 Heart failure, unspecified; J44.9 Chronic obstructive pulmonary disease, unspecified; K21.9 Gastro-esophageal reflux disease without esophagitis; K59.00 Constipation, unspecified; Q35.9 Cleft palate, unspecified; Z59.0 Homelessness; Z79.82 Long term (current) use of aspirin; Z91.19 Patient's noncompliance with other medical treatment and regimen; Z91.5 Personal history of self-harm; F32.9 Major depressive disorder, single episode, unspecified
CPT/HCPCS: 83036; 84439; 84443; 86592; 87081; G0480

== ENCOUNTER 2019-09-22 01:32 | Inpatient (IN) | payer MEDICARE, MEDICAID ==
[~2019-09-22] VITALS: Ht 172.7 cm; Wt 95.7 kg
[~2019-09-22 01:32] MED LIST changes: +AMLO10TA7 PO; -AMLO5TAB9 PO; -ARIP15TA2 PO; -ESCI20TA43 PO; +NALT50TA6 PO; +QUET200T PO; +QUET25TA PO
[2019-09-22] MEDS ORDERED: ALBUTEROL SULFATE HFA 90 MCG/PUFF 8 GM INHALER IH ONE (01:45)
[2019-09-22] MEDS ORDERED: IPRATROPIUM BROMIDE HFA 17 MCG/PUFF 12.9 GM INHALER IH ONE (01:45)
[2019-09-22] MEDS ORDERED: MethylPREDNISolone SOD SUCC 125 MG/2 ML VIAL IVP ONE (01:45)
[2019-09-22] MEDS ORDERED: MAGNESIUM SULFATE 2 GM/WATER 50 ML IV ONE (01:45)
[2019-09-22 02:05] LABS: BASOPHILS % (AUTO) 0.3 % (0.0-2.0); EOSINOPHILS % (AUTO) 2.6 % (1.0-6.0); LYMPHOCYTES # (AUTO) 2.1 K/uL (1.0-4.8); MEAN CORPUSCULAR HEMOGLOBIN 28.7 pg (26.0-34.0); MEAN CORPUSCULAR HGB CONC 33.3 G/dL (31.0-37.0); MEAN CORPUSCULAR VOLUME 86 fL (80-100); MONOCYTES # (AUTO) 0.6 K/uL (0.1-1.0); MONOCYTES % (AUTO) 8.7 % (2.0-9.0); NEUTROPHILS # (AUTO) 3.6 K/uL (1.8-7.7); NEUTROPHILS % (AUTO) 56.4 % (40.0-70.0); PLATELET COUNT (AUTO) 184 K/uL (150-450); RED BLOOD CELL COUNT(AUTO) 5.23 MIL/uL (4.50-5.90); RED CELL DISTRIBUTION WIDTH 13.3 % (11.5-14.5)
[2019-09-22 02:16] LABS: ANION GAP 4 mmol/L (8-16); CALCIUM, TOTAL 8.9 mg/dL (8.8-10.5); CARBON DIOXIDE 30 mmol/L (22-29); CHLORIDE 102 mmol/L (98-107); CREATININE 1.15 mg/dL (0.60-1.30); GLOMERULAR FILTR. RATE CALC > 60 mL/min (>60); GLUCOSE,RANDOM 135 mg/dL (70-110); POTASSIUM 4.3 mmol/L (3.5-5.1); SODIUM SERUM 136 mmol/L (136-145); UREA NITROGEN, BLOOD 16 mg/dL (7-18)
[2019-09-22 02:24] LABS: B-TYPE NATRIURETIC PEPTIDE 327 pg/mL (0-100)
[2019-09-22 02:41] LABS: ALANINE AMINOTRANSFERASE 25 U/L (12-78); ALBUMIN 3.9 g/dL (3.4-5.0); ALKALINE PHOSPHATASE 95 U/L (46-116); ASPARTATE AMINOTRANSFERASE 22 U/L (15-37); BILIRUBIN,TOTAL 0.4 mg/dL (0.1-1.0); CREATINE KINASE, TOTAL ONLY 116 U/L (39-308); TOTAL PROTEIN, SERUM 7.1 g/dL (6.4-8.2)
[2019-09-22] MEDS ORDERED: ONDANSETRON HCL 4 MG/2 ML VIAL IVP PRN (05:30)
[2019-09-22] MEDS ORDERED: ACETAMINOPHEN 325 MG TABLET PO PRN ×2 (05:30→08:30)
[2019-09-22 06:32] VITALS: BP 151/106
[2019-09-22 07:54] VITALS: BP 157/100
[2019-09-22] MEDS ORDERED: ALBUTEROL SULFATE 2.5 MG/0.5 ML NEB SOLUTION NEB PRN (08:30)
[2019-09-22] MEDS ORDERED: IPRATROPIUM BROMIDE 0.5 MG/2.5 ML NEB SOLUTION NEB PRN (08:30)
[2019-09-22] MEDS ORDERED: PredniSONE 10 MG TABLET PO SCH (09:00)
[2019-09-22] MEDS ORDERED: DOCUSATE SODIUM 100 MG CAPSULE PO SCH (09:00)
[2019-09-22] MEDS ORDERED: FAMOTIDINE 20 MG TABLET PO SCH (09:00)
[2019-09-22] MEDS ORDERED: AmLODIPine BESYLATE 10 MG TABLET PO SCH (09:00)
[2019-09-22 11:14] VITALS: BP 148/96
[2019-09-22] MEDS ORDERED: HEPARIN SODIUM,PORCINE 5,000 UNITS/ML VIAL SQ SCH (16:00)
== END 2019-09-22 12:43 | disposition left against medical advice (07) | DRG 192 ==
LOC: EMS 01:32 → 6N 05:35
PROVIDERS: ADMIT Internal Medicine; ATTEND Internal Medicine
DX: J44.1 Chronic obstructive pulmonary disease with (acute) exacerbation (principal); F20.9 Schizophrenia, unspecified; E78.00 Pure hypercholesterolemia, unspecified; F31.9 Bipolar disorder, unspecified; F19.10 Other psychoactive substance abuse, uncomplicated; Z53.29 Procedure and treatment not carried out because of patient's decision for other reasons; Z88.8 Allergy status to other drugs, medicaments and biological substances; Z82.49 Family history of ischemic heart disease and other diseases of the circulatory system; I11.0 Hypertensive heart disease with heart failure; I50.9 Heart failure, unspecified
CPT/HCPCS: 93005; J2930; J3475; J3535

== ENCOUNTER 2019-12-22 09:44 | Emergency (ER) | payer MEDICAID, MEDICARE ==
[~2019-12-22] VITALS: Ht 172.7 cm; Wt 77.3 kg
[~2019-12-22 09:44] MED LIST changes: +AMLO-258 PO; -AMLO10TA7 PO; -NALT50TA6 PO; +PANT-31 PO; -PANT40TA25 PO
[2019-12-22 10:46] LABS: BASOPHILS % (AUTO) 0.3 % (0.0-2.0); EOSINOPHILS % (AUTO) 0.2 % (1.0-6.0); HEMATOCRIT 49.4 % (41-53); HEMOGLOBIN 16.7 g/dL (13.5-17.5); LYMPHOCYTES # (AUTO) 1.4 K/uL (1.0-4.8); LYMPHOCYTES % (AUTO) 11.4 % (22.0-44.0); MEAN CORPUSCULAR HEMOGLOBIN 29.1 pg (26.0-34.0); MEAN CORPUSCULAR HGB CONC 33.8 G/dL (31.0-37.0); MEAN CORPUSCULAR VOLUME 86 fL (80-100); MONOCYTES # (AUTO) 0.9 K/uL (0.1-1.0); MONOCYTES % (AUTO) 7.5 % (2.0-9.0); NEUTROPHILS # (AUTO) 9.7 K/uL (1.8-7.7); NEUTROPHILS % (AUTO) 80.6 % (40.0-70.0); PLATELET COUNT (AUTO) 243 K/uL (150-450); RED BLOOD CELL COUNT(AUTO) 5.74 MIL/uL (4.50-5.90); RED CELL DISTRIBUTION WIDTH 13.8 % (11.5-14.5)
[2019-12-22 10:57] LABS: CALCIUM, TOTAL 9.7 mg/dL (8.8-10.5); CARBON DIOXIDE 29 mmol/L (22-29); CHLORIDE 100 mmol/L (98-107); CREATININE 1.14 mg/dL (0.60-1.30); GLOMERULAR FILTR. RATE CALC > 60 mL/min (>60); GLUCOSE,RANDOM 133 mg/dL (70-110); POTASSIUM 4.2 mmol/L (3.5-5.1); UREA NITROGEN, BLOOD 30 mg/dL (7-18)
[2019-12-22 11:00] LABS: ALANINE AMINOTRANSFERASE 30 U/L (12-78); ALBUMIN 4.9 g/dL (3.4-5.0); ALKALINE PHOSPHATASE 97 U/L (46-116); ANION GAP 11 mmol/L (8-16); ASPARTATE AMINOTRANSFERASE 29 U/L (15-37); BILIRUBIN,TOTAL 0.5 mg/dL (0.1-1.0); SODIUM SERUM 140 mmol/L (136-145); TOTAL PROTEIN, SERUM 9.2 g/dL (6.4-8.2)
[2019-12-22 13:30] VITALS: BP 158/95
[2019-12-22] MEDS ORDERED: QUEtiapine FUMARATE 25 MG TABLET PO ONE (13:30)
== END 2019-12-22 14:00 | disposition home or self-care (01) ==
LOC: EMS 09:49
DX: F32.9 Major depressive disorder, single episode, unspecified (principal); F17.210 Nicotine dependence, cigarettes, uncomplicated; J44.9 Chronic obstructive pulmonary disease, unspecified; I11.9 Hypertensive heart disease without heart failure; E78.00 Pure hypercholesterolemia, unspecified; F20.9 Schizophrenia, unspecified; F12.90 Cannabis use, unspecified, uncomplicated; F19.90 Other psychoactive substance use, unspecified, uncomplicated; Z59.0 Homelessness; Z88.8 Allergy status to other drugs, medicaments and biological substances; Z79.82 Long term (current) use of aspirin
CPT/HCPCS: 36415; 80053; 85025; 99284; 99406; G0480

== ENCOUNTER 2020-01-13 09:05 | Inpatient (IN) | payer MEDICARE ==
[~2020-01-13] VITALS: Ht 172.7 cm; Wt 79.8 kg
[2020-01-13] MEDS ORDERED: QUEtiapine FUMARATE 100 MG TABLET PO PRN (09:45)
[2020-01-13] MEDS ORDERED: ZOLPIDEM TARTRATE 10 MG TABLET PO PRN (09:45)
[2020-01-13 10:17] VITALS: BP 164/79
[2020-01-13 11:30] VITALS: BP 157/77
[2020-01-13] MEDS: AmLODIPine BESYLATE 10 MG TABLET PO SCH (13:00)
[2020-01-13] MEDS: QUEtiapine FUMARATE 25 MG TABLET PO SCH ×2 (13:00→17:00)
[2020-01-13] MEDS: LORazepam 2 MG TABLET PO PRN (13:00)
[2020-01-13 17:41] VITALS: BP 136/72
[2020-01-13] MEDS: QUEtiapine FUMARATE 200 MG TABLET PO SCH (20:06)
[2020-01-14 05:06] VITALS: BP 128/64
[2020-01-14 07:25] LABS: BASOPHILS % (AUTO) 0.3 % (0.0-2.0); EOSINOPHILS % (AUTO) 2.5 % (1.0-6.0); HEMOGLOBIN 13.2 g/dL (13.5-17.5); LYMPHOCYTES # (AUTO) 1.8 K/uL (1.0-4.8); LYMPHOCYTES % (AUTO) 36.2 % (22.0-44.0); MEAN CORPUSCULAR HGB CONC 34.7 G/dL (31.0-37.0); MEAN CORPUSCULAR VOLUME 86 fL (80-100); MONOCYTES # (AUTO) 0.5 K/uL (0.1-1.0); MONOCYTES % (AUTO) 9.8 % (2.0-9.0); NEUTROPHILS # (AUTO) 2.6 K/uL (1.8-7.7); NEUTROPHILS % (AUTO) 51.2 % (40.0-70.0); PLATELET COUNT (AUTO) 141 K/uL (150-450); RED CELL DISTRIBUTION WIDTH 13.6 % (11.5-14.5)
[2020-01-14 07:40] LABS: APPEARANCE,URINE TURBID (CLEAR); GLUCOSE, URINE (UA) NEGATIVE (NEGATIVE); KETONES,URINE TRACE mg/dL (NEGATIVE); LEUKOCYTE ESTERASE ,URINE NEGATIVE (NEGATIVE); NITRATE,URINE NEGATIVE (NEGATIVE); OCCULT BLOOD,URINE NEGATIVE (NEGATIVE); PROTEIN,URINE TRACE (NEGATIVE); UROBILINOGEN,URINE 0.2 mg/dL (<=1.0)
[2020-01-14 07:43] LABS: BILIRUBIN,URINE PRELIM. POSITIVE (NEGATIVE)
[2020-01-14 07:46] LABS: ALANINE AMINOTRANSFERASE 36 U/L (12-78); ALBUMIN 3.5 g/dL (3.4-5.0); ALKALINE PHOSPHATASE 57 U/L (46-116); ANION GAP 5 mmol/L (8-16); ASPARTATE AMINOTRANSFERASE 43 U/L (15-37); BILIRUBIN,TOTAL 0.8 mg/dL (0.1-1.0); CALCIUM, TOTAL 8.6 mg/dL (8.8-10.5); CARBON DIOXIDE 30 mmol/L (22-29); CHLORIDE 104 mmol/L (98-107); CHOL/HDL RATIO 3.2 (4.2-7.3); CHOLESTEROL 145 mg/dL (131-200); FREE T4 (FREE THYROXINE) 1.15 ng/dL (0.76-1.46); GLOMERULAR FILTR. RATE CALC > 60 mL/min (>60); GLUCOSE,RANDOM 115 mg/dL (70-110); HDL CHOLESTEROL 46 mg/dL (40-60); LDL CHOL (CALC.) 82 mg/dL (0-130); POTASSIUM 3.6 mmol/L (3.5-5.1); SODIUM SERUM 139 mmol/L (136-145); THYROID STIMULATING HORMONE 0.96 uIU/mL (0.36-3.74); TOTAL PROTEIN, SERUM 6.5 g/dL (6.4-8.2); TRIGLYCERIDES 87 mg/dL (15-150); UREA NITROGEN, BLOOD 26 mg/dL (7-18)
[2020-01-14 07:48] LABS: HEMOGLOBIN A1C 5.8 % (3.8-5.6)
[2020-01-14 07:49] LABS: AMPHET/METH SCREEN,URINE POSITIVE (NEGATIVE); BARBITURATE SCREEN, URINE NEGATIVE (NEGATIVE); BENZODIAZEPINES SCREEN,URINE NEGATIVE (NEGATIVE); CANNABINOID SCREEN,URINE POSITIVE (NEGATIVE); COCAINE SCREEN,URINE NEGATIVE (NEGATIVE); METHADONE SCREEN, URINE NEGATIVE (NEGATIVE); OPIATE SCREEN,URINE NEGATIVE (NEGATIVE); PHENCYCLIDINE SCREEN,URINE NEGATIVE (NEGATIVE)
[2020-01-14 08:02] LABS: AMORPHOUS SEDIMENT,UR Many /LPF (None Seen); BACTERIA,URINE Few /HPF (None Seen); CALCIUM OXALATE CRYSTALS,UR Few /LPF (None Seen); RBC,URINE None Seen /HPF (0-2); SQUAMOUS EPITHELIAL CELL,UR None Seen /LPF (None Seen); WBC,URINE None Seen /HPF (0-5)
[2020-01-14] MEDS: ASPIRIN 81 MG CHEWABLE TABLET PO SCH (08:46)
[2020-01-14] MEDS: AmLODIPine BESYLATE 10 MG TABLET PO SCH (08:46)
[2020-01-14] MEDS: PANTOPRAZOLE SODIUM 40 MG DR TABLET PO SCH (08:46)
[2020-01-14] MEDS: QUEtiapine FUMARATE 25 MG TABLET PO SCH ×3 (08:46→16:27)
[2020-01-14 08:51] VITALS: BP 143/90
[2020-01-14] MEDS ORDERED: NICOTINE 14 MG/24 HOUR PATCH TD PRN (09:00)
[2020-01-14] MEDS ORDERED: IBUPROFEN 400 MG TABLET PO PRN (09:00)
[2020-01-14] MEDS ORDERED: DOCUSATE SODIUM 100 MG CAPSULE PO PRN (09:00)
[2020-01-14] MEDS ORDERED: PETROLATUM,WHITE 28 GM JELLY TP PRN (09:00)
[2020-01-14] MEDS ORDERED: ALBUTEROL SULFATE HFA 90 MCG/PUFF 8 GM INHALER IH PRN (09:00)
[2020-01-14] MEDS ORDERED: MAG HYDROX/AL HYDROX/SIMETH ES 30 ML SUSPENSION UDCUP PO PRN (09:00)
[2020-01-14] MEDS ORDERED: MAGNESIUM HYDROXIDE SUSPENSION 30 ML UDCUP PO PRN (09:00)
[2020-01-14] MEDS ORDERED: GuaiFENesin/D-METHORPHAN [SUGAR-FREE] 200-20MG/10 ML SYRUP UDCUP PO PRN (09:00)
[2020-01-14] MEDS ORDERED: LOPERAMIDE HCL 2 MG CAPSULE PO PRN (09:00)
[2020-01-14] MEDS ORDERED: CloNIDine HCL 0.1 MG TABLET PO PRN (09:00)
[2020-01-14] MEDS ORDERED: ONDANSETRON HCL 4 MG TABLET PO PRN (09:00)
[2020-01-14] MEDS ORDERED: ACETAMINOPHEN 325 MG TABLET PO PRN (09:00)
[2020-01-14 16:08] VITALS: BP 125/70
[2020-01-14] MEDS: QUEtiapine FUMARATE 200 MG TABLET PO SCH (21:52)
[2020-01-15 00:15] VITALS: BP 128/82
[2020-01-15] MEDS: MULTIVITAMINS WITH IRON TABLET PO SCH (08:25)
[2020-01-15] MEDS: QUEtiapine FUMARATE 25 MG TABLET PO SCH ×3 (08:25→16:49)
[2020-01-15] MEDS: PANTOPRAZOLE SODIUM 40 MG DR TABLET PO SCH (08:25)
[2020-01-15] MEDS: AmLODIPine BESYLATE 10 MG TABLET PO SCH (08:25)
[2020-01-15] MEDS: ASPIRIN 81 MG CHEWABLE TABLET PO SCH (08:25)
[2020-01-15 08:28] VITALS: BP 153/93
[2020-01-15 16:10] VITALS: BP 150/86
[2020-01-15] MEDS: QUEtiapine FUMARATE 200 MG TABLET PO SCH (21:36)
[2020-01-16 02:04] VITALS: BP 134/79
[2020-01-16 08:18] VITALS: BP 149/83
[2020-01-16] MEDS: PANTOPRAZOLE SODIUM 40 MG DR TABLET PO SCH (08:36)
[2020-01-16] MEDS: MULTIVITAMINS WITH IRON TABLET PO SCH (08:36)
[2020-01-16] MEDS: AmLODIPine BESYLATE 10 MG TABLET PO SCH (08:36)
[2020-01-16] MEDS: QUEtiapine FUMARATE 25 MG TABLET PO SCH ×3 (08:36→16:46)
[2020-01-16] MEDS: ASPIRIN 81 MG CHEWABLE TABLET PO SCH (08:36)
[2020-01-16] MEDS: LORazepam 2 MG TABLET PO PRN (09:11)
[2020-01-16 16:26] VITALS: BP 151/84
[2020-01-16] MEDS: QUEtiapine FUMARATE 200 MG TABLET PO SCH (20:15)
[2020-01-17 02:03] VITALS: BP 150/94
[2020-01-17 08:07] VITALS: BP 154/88
[2020-01-17] MEDS: ASPIRIN 81 MG CHEWABLE TABLET PO SCH (08:54)
[2020-01-17] MEDS: PANTOPRAZOLE SODIUM 40 MG DR TABLET PO SCH (08:54)
[2020-01-17] MEDS: AmLODIPine BESYLATE 10 MG TABLET PO SCH (08:54)
[2020-01-17] MEDS: QUEtiapine FUMARATE 25 MG TABLET PO SCH ×3 (08:54→16:46)
[2020-01-17] MEDS: MULTIVITAMINS WITH IRON TABLET PO SCH (08:54)
[2020-01-17] MEDS: LORazepam 2 MG TABLET PO PRN ×2 (09:46→19:14)
[2020-01-17 17:00] VITALS: BP 136/80
[2020-01-17] MEDS: QUEtiapine FUMARATE 200 MG TABLET PO SCH (20:35)
[2020-01-18 04:10] VITALS: BP 135/78
[2020-01-18] MEDS: PANTOPRAZOLE SODIUM 40 MG DR TABLET PO SCH (08:40)
[2020-01-18] MEDS: MULTIVITAMINS WITH IRON TABLET PO SCH (08:40)
[2020-01-18] MEDS: AmLODIPine BESYLATE 10 MG TABLET PO SCH (08:40)
[2020-01-18] MEDS: ASPIRIN 81 MG CHEWABLE TABLET PO SCH (08:41)
[2020-01-18] MEDS: QUEtiapine FUMARATE 25 MG TABLET PO SCH ×3 (08:43→16:32)
[2020-01-18 09:42] VITALS: BP 135/78
[2020-01-18 16:00] VITALS: BP 140/88
[2020-01-18] MEDS: QUEtiapine FUMARATE 200 MG TABLET PO SCH (20:38)
[2020-01-19 00:06] VITALS: BP 136/89
[2020-01-19] MEDS: PANTOPRAZOLE SODIUM 40 MG DR TABLET PO SCH (08:23)
[2020-01-19] MEDS: MULTIVITAMINS WITH IRON TABLET PO SCH (08:23)
[2020-01-19] MEDS: ASPIRIN 81 MG CHEWABLE TABLET PO SCH (08:23)
[2020-01-19] MEDS: QUEtiapine FUMARATE 25 MG TABLET PO SCH ×3 (08:23→17:25)
[2020-01-19] MEDS: AmLODIPine BESYLATE 10 MG TABLET PO SCH (08:23)
[2020-01-19 08:24] VITALS: BP 142/62
[2020-01-19] MEDS: LORazepam 2 MG TABLET PO PRN (08:45)
[2020-01-19 16:23] VITALS: BP 142/78
[2020-01-19] MEDS: QUEtiapine FUMARATE 200 MG TABLET PO SCH (20:05)
[2020-01-20 00:12] VITALS: BP 133/82
[2020-01-20 08:41] VITALS: BP 148/85
[2020-01-20] MEDS: AmLODIPine BESYLATE 10 MG TABLET PO SCH (08:44)
[2020-01-20] MEDS: MULTIVITAMINS WITH IRON TABLET PO SCH (08:44)
[2020-01-20] MEDS: ASPIRIN 81 MG CHEWABLE TABLET PO SCH (08:44)
[2020-01-20] MEDS: PANTOPRAZOLE SODIUM 40 MG DR TABLET PO SCH (08:44)
[2020-01-20] MEDS: QUEtiapine FUMARATE 25 MG TABLET PO SCH ×3 (08:44→16:33)
[2020-01-20] MEDS: LORazepam 2 MG TABLET PO PRN (12:21)
[2020-01-20 17:07] VITALS: BP 143/82
[2020-01-20] MEDS: QUEtiapine FUMARATE 200 MG TABLET PO SCH (20:34)
[2020-01-21 04:07] VITALS: BP 146/83
[2020-01-21 08:23] VITALS: BP 120/62
[2020-01-21] MEDS: QUEtiapine FUMARATE 25 MG TABLET PO SCH ×2 (08:36→12:33)
[2020-01-21] MEDS: PANTOPRAZOLE SODIUM 40 MG DR TABLET PO SCH (08:36)
[2020-01-21] MEDS: AmLODIPine BESYLATE 10 MG TABLET PO SCH (08:36)
[2020-01-21] MEDS: MULTIVITAMINS WITH IRON TABLET PO SCH (08:37)
[2020-01-21] MEDS: ASPIRIN 81 MG CHEWABLE TABLET PO SCH (08:37)
[2020-01-21] MEDS ORDERED: QUET200T PO ×2 (11:57→12:01)
[2020-01-21] MEDS ORDERED: QUET25TA PO ×2 (11:57→11:59)
[2020-01-21] MEDS ORDERED: ASPI81TA87 PO (12:02)
[2020-01-21] MEDS ORDERED: AMLO-258 PO (12:03)
[2020-01-21] MEDS ORDERED: PANT-31 PO (12:04)
[2020-01-21] MEDS ORDERED: QUEtiapine FUMARATE 25 MG TABLET PO SCH (13:00)
[2020-01-21] MEDS ORDERED: QUEtiapine FUMARATE 200 MG TABLET PO SCH (21:00)
[2020-01-22] MEDS ORDERED: ASPIRIN 81 MG EC TABLET PO SCH (09:00)
[2020-01-22] MEDS ORDERED: AmLODIPine BESYLATE 10 MG TABLET PO SCH (09:00)
[2020-01-22] MEDS ORDERED: PANTOPRAZOLE SODIUM 40 MG DR TABLET PO SCH (09:00)
== END 2020-01-21 22:24 | disposition home or self-care (01) | DRG 442 ==
LOC: B2S 11:38 → B2X 01-17 16:45
PROVIDERS: ADMIT Psychiatry & Neurology Psychiatry; ATTEND Psychiatry & Neurology Child & Adolescent Psychiatry
DX: B19.20 Unspecified viral hepatitis C without hepatic coma (principal); R45.851 Suicidal ideations; I11.0 Hypertensive heart disease with heart failure; F25.1 Schizoaffective disorder, depressive type; E03.9 Hypothyroidism, unspecified; E78.5 Hyperlipidemia, unspecified; F10.10 Alcohol abuse, uncomplicated; F15.10 Other stimulant abuse, uncomplicated; F41.1 Generalized anxiety disorder; I50.9 Heart failure, unspecified; J44.9 Chronic obstructive pulmonary disease, unspecified; F12.10 Cannabis abuse, uncomplicated; K21.9 Gastro-esophageal reflux disease without esophagitis; Z91.19 Patient's noncompliance with other medical treatment and regimen; Z79.899 Other long term (current) drug therapy; Z79.82 Long term (current) use of aspirin; Z88.8 Allergy status to other drugs, medicaments and biological substances
CPT/HCPCS: 80307; 83036; 84436; 84439; 84443; 86592; 87081

== ENCOUNTER 2020-04-12 20:04 | Emergency (ER) | payer MEDICARE ==
[~2020-04-12] VITALS: Ht 172.7 cm; Wt 81.8 kg
[~2020-04-12 20:04] MED LIST changes: -ASPI-728 PO; +ASPI81TA87 PO
[2020-04-12 21:04] LABS: COVID AG,FIA SOURCE NASOPHARYNGEAL
[2020-04-12 21:19] LABS: BASOPHILS % (AUTO) 0.4 % (0.0-2.0); EOSINOPHILS % (AUTO) 1.2 % (1.0-6.0); HEMATOCRIT 44.2 % (41-53); HEMOGLOBIN 14.8 g/dL (13.5-17.5); LYMPHOCYTES # (AUTO) 1.7 K/uL (1.0-4.8); LYMPHOCYTES % (AUTO) 22.2 % (22.0-44.0); MEAN CORPUSCULAR HEMOGLOBIN 28.7 pg (26.0-34.0); MEAN CORPUSCULAR HGB CONC 33.4 G/dL (31.0-37.0); MEAN CORPUSCULAR VOLUME 86 fL (80-100); MONOCYTES # (AUTO) 0.8 K/uL (0.1-1.0); MONOCYTES % (AUTO) 10.2 % (2.0-9.0); PLATELET COUNT (AUTO) 235 K/uL (150-450); RED BLOOD CELL COUNT(AUTO) 5.14 MIL/uL (4.50-5.90); RED CELL DISTRIBUTION WIDTH 14.7 % (11.5-14.5)
[2020-04-12 21:21] LABS: AMPHET/METH SCREEN,URINE POSITIVE (NEGATIVE); BARBITURATE SCREEN, URINE NEGATIVE (NEGATIVE); BENZODIAZEPINES SCREEN,URINE NEGATIVE (NEGATIVE); CANNABINOID SCREEN,URINE POSITIVE (NEGATIVE); COCAINE SCREEN,URINE NEGATIVE (NEGATIVE); METHADONE SCREEN, URINE NEGATIVE (NEGATIVE); OPIATE SCREEN,URINE NEGATIVE (NEGATIVE)
[2020-04-12 21:33] LABS: ANION GAP 7 mmol/L (8-16); CALCIUM, TOTAL 9.5 mg/dL (8.8-10.5); CARBON DIOXIDE 31 mmol/L (22-29); CHLORIDE 107 mmol/L (98-107); GLOMERULAR FILTR. RATE CALC > 60 mL/min (>60); GLUCOSE,RANDOM 91 mg/dL (70-110); POTASSIUM 4.2 mmol/L (3.5-5.1); SODIUM SERUM 145 mmol/L (136-145); UREA NITROGEN, BLOOD 18 mg/dL (7-18)
[2020-04-12] MEDS ORDERED: FURO20 PO (21:35)
[2020-04-12 21:39] LABS: ALANINE AMINOTRANSFERASE 36 U/L (12-78); ALBUMIN 4.2 g/dL (3.4-5.0); ALKALINE PHOSPHATASE 89 U/L (46-116); ASPARTATE AMINOTRANSFERASE 38 U/L (15-37); BILIRUBIN,TOTAL 0.6 mg/dL (0.1-1.0); TOTAL PROTEIN, SERUM 7.8 g/dL (6.4-8.2)
[2020-04-12 21:42] LABS: PHENCYCLIDINE SCREEN,URINE NEGATIVE (NEGATIVE)
[2020-04-12 23:10] VITALS: BP 162/59
== END 2020-04-13 00:27 | disposition home or self-care (01) ==
LOC: EMS 20:04
DX: F25.9 Schizoaffective disorder, unspecified (principal); Z20.828 Contact with and (suspected) exposure to other viral communicable diseases
CPT/HCPCS: 36415; 80053; 80307; 85025; 87426; 99284; G0480

== ENCOUNTER 2021-07-09 15:52 | Inpatient (IN) | payer MEDICARE, MEDICAID ==
[~2021-07-09] VITALS: Ht 172.7 cm; Wt 77.0 kg
[~2021-07-09 15:52] MED LIST changes: -ASPI81TA87 PO; +FURO20 PO; +NALT50TA PO; +NALT50TA6 PO; +OMEG-135 PO; -QUET200T PO; +QUET25TA36 PO; +QUET300T19 PO; +QUET300T2 PO
[2021-07-09] MEDS ORDERED: LABETALOL HCL 5 MG/ML 20 ML VIAL IVP ONE (19:00)
[2021-07-09 19:03] LABS: BASOPHILS % (AUTO) 0.5 % (0.0-2.0); EOSINOPHILS % (AUTO) 1.7 % (1.0-6.0); HEMATOCRIT 43.2 % (41-53); HEMOGLOBIN 14.9 g/dL (13.5-17.5); LYMPHOCYTES # (AUTO) 2.1 K/uL (1.0-4.8); LYMPHOCYTES % (AUTO) 29.1 % (22.0-44.0); MEAN CORPUSCULAR HEMOGLOBIN 29.9 pg (26.0-34.0); MEAN CORPUSCULAR HGB CONC 34.6 G/dL (31.0-37.0); MEAN CORPUSCULAR VOLUME 86 fL (80-100); MONOCYTES # (AUTO) 0.7 K/uL (0.1-1.0); MONOCYTES % (AUTO) 10.2 % (2.0-9.0); NEUTROPHILS # (AUTO) 4.2 K/uL (1.8-7.7); NEUTROPHILS % (AUTO) 58.5 % (40.0-70.0); PLATELET COUNT (AUTO) 214 K/uL (150-450); RED BLOOD CELL COUNT(AUTO) 4.99 MIL/uL (4.50-5.90); RED CELL DISTRIBUTION WIDTH 14.3 % (11.5-14.5)
[2021-07-09 19:12] LABS: COVID AG,FIA SOURCE NASOPHARYNGEAL
[2021-07-09 19:23] LABS: CALCIUM, TOTAL 9.3 mg/dL (8.8-10.5); CREATININE 1.26 mg/dL (0.60-1.30); POTASSIUM 3.8 mmol/L (3.5-5.1)
[2021-07-09 19:27] LABS: PROTHROMBIN TIME 10.7 SEC (9.4-11.6)
[2021-07-09 19:29] LABS: ALBUMIN 3.7 g/dL (3.4-5.0); BILIRUBIN,TOTAL 0.4 mg/dL (0.1-1.0); TOTAL PROTEIN, SERUM 7.5 g/dL (6.4-8.2)
[2021-07-09] MEDS ORDERED: ASPIRIN 81 MG CHEWABLE TABLET PO ONE (19:45)
[2021-07-09] MEDS ORDERED: ONDANSETRON HCL 4 MG/2 ML VIAL IVP PRN (20:30)
[2021-07-09] MEDS ORDERED: ACETAMINOPHEN 325 MG TABLET PO PRN (20:30)
[2021-07-09] MEDS ORDERED: ATORVASTATIN CALCIUM 40 MG TABLET PO ONE (21:45)
[2021-07-09] MEDS: FUROSEMIDE 20 MG/2 ML VIAL IVP SCH (21:56)
[2021-07-09] MEDS: NITROGLYCERIN 2% (1 GM=INCH) PACKET TP SCH (21:57)
[2021-07-09] MEDS ORDERED: NITROGLYCERIN 2% (1 GM=INCH) PACKET TP ONE (22:30)
[2021-07-09] MEDS ORDERED: FUROSEMIDE 40 MG/4 ML VIAL IVP ONE (22:30)
[2021-07-09] MEDS ORDERED: HydrALAZINE HCL 20 MG/ML VIAL IVP PRN (22:45)
[2021-07-09 23:57] LABS: APPEARANCE,URINE CLEAR (CLEAR); BILIRUBIN,URINE NEGATIVE (NEGATIVE); GLUCOSE, URINE (UA) NEGATIVE (NEGATIVE); KETONES,URINE NEGATIVE (NEGATIVE); LEUKOCYTE ESTERASE ,URINE NEGATIVE (NEGATIVE); NITRATE,URINE NEGATIVE (NEGATIVE); OCCULT BLOOD,URINE NEGATIVE (NEGATIVE); PROTEIN,URINE NEGATIVE (NEGATIVE); UROBILINOGEN,URINE 0.2 mg/dL (<=1.0)
[2021-07-10] MEDS ORDERED: HEPARIN SODIUM,PORCINE 5,000 UNITS/ML VIAL SQ SCH
[2021-07-10 00:06] LABS: AMPHET/METH SCREEN,URINE POSITIVE (NEGATIVE); BARBITURATE SCREEN, URINE NEGATIVE (NEGATIVE); BENZODIAZEPINES SCREEN,URINE NEGATIVE (NEGATIVE); CANNABINOID SCREEN,URINE POSITIVE (NEGATIVE); COCAINE SCREEN,URINE NEGATIVE (NEGATIVE); METHADONE SCREEN, URINE NEGATIVE (NEGATIVE); OPIATE SCREEN,URINE NEGATIVE (NEGATIVE); PHENCYCLIDINE SCREEN,URINE NEGATIVE (NEGATIVE)
[2021-07-10] MEDS: NITROGLYCERIN 2% (1 GM=INCH) PACKET TP SCH ×3 (04:10→18:00)
[2021-07-10 06:40] LABS: ANION GAP 10 mmol/L (8-16); CALCIUM, TOTAL 8.8 mg/dL (8.8-10.5); CARBON DIOXIDE 28 mmol/L (22-29); CHLORIDE 103 mmol/L (98-107); CREATININE 1.17 mg/dL (0.60-1.30); GLOMERULAR FILTR. RATE CALC > 60 mL/min (>60); GLUCOSE,RANDOM 128 mg/dL (70-110); POTASSIUM 3.9 mmol/L (3.5-5.1); SODIUM SERUM 141 mmol/L (136-145); UREA NITROGEN, BLOOD 18 mg/dL (7-18)
[2021-07-10] MEDS: ATORVASTATIN CALCIUM 40 MG TABLET PO SCH (07:57)
[2021-07-10] MEDS: ASPIRIN 81 MG CHEWABLE TABLET PO SCH (07:57)
[2021-07-10] MEDS: METOPROLOL TARTRATE 50 MG TABLET PO SCH ×2 (07:57→20:41)
[2021-07-10] MEDS: FUROSEMIDE 20 MG/2 ML VIAL IVP SCH ×2 (08:17→20:41)
[2021-07-10] MEDS ORDERED: HEPARIN SODIUM 25000 UNITS/D5W 250 ML IV PRN (08:30)
[2021-07-10] MEDS ORDERED: HEPARIN SODIUM,PORCINE 5,000 UNITS/ML VIAL IVP PRN ×3 (08:30→08:45)
[2021-07-10] MEDS ORDERED: ENOXAPARIN SODIUM 80 MG/0.8 ML PF SYRINGE SQ SCH (09:00)
[2021-07-10] MEDS: HEPARIN SODIUM 25000 UNITS/D5W 250 ML IV PRN (09:03)
[2021-07-10 09:12] LABS: BASOPHILS % (AUTO) 0.5 % (0.0-2.0); EOSINOPHILS % (AUTO) 1.5 % (1.0-6.0); HEMATOCRIT 46.9 % (41-53); HEMOGLOBIN 16.2 g/dL (13.5-17.5); LYMPHOCYTES # (AUTO) 1.2 K/uL (1.0-4.8); LYMPHOCYTES % (AUTO) 17.3 % (22.0-44.0); MEAN CORPUSCULAR HEMOGLOBIN 29.9 pg (26.0-34.0); MEAN CORPUSCULAR HGB CONC 34.5 G/dL (31.0-37.0); MEAN CORPUSCULAR VOLUME 87 fL (80-100); MONOCYTES # (AUTO) 0.5 K/uL (0.1-1.0); MONOCYTES % (AUTO) 6.4 % (2.0-9.0); NEUTROPHILS # (AUTO) 5.3 K/uL (1.8-7.7); NEUTROPHILS % (AUTO) 74.3 % (40.0-70.0); PLATELET COUNT (AUTO) 211 K/uL (150-450); RED BLOOD CELL COUNT(AUTO) 5.42 MIL/uL (4.50-5.90); RED CELL DISTRIBUTION WIDTH 14.4 % (11.5-14.5)
[2021-07-10 09:21] LABS: PROTHROMBIN TIME 10.7 SEC (9.4-11.6)
[2021-07-10 09:58] VITALS: BP 144/82
[2021-07-10] MEDS ORDERED: PERFLUTREN PROTEIN-A MICROSPHERES 0.22 MG/ML 3 ML VIAL IVP ONE ×2 (11:00)
[2021-07-10] MEDS ORDERED: ALBUTEROL SULFATE HFA 90 MCG/PUFF 8 GM INHALER IH PRN (12:45)
[2021-07-10] MEDS: LORazepam 2 MG/ML VIAL IVP PRN (13:40)
[2021-07-10 16:09] VITALS: BP 116/65
[2021-07-10 19:35] VITALS: BP 151/54
[2021-07-10] MEDS: QUEtiapine FUMARATE 200 MG TABLET PO SCH (20:41)
[2021-07-10 23:11] VITALS: BP 96/55
[2021-07-11 04:20] VITALS: BP 109/61
[2021-07-11] MEDS: HEPARIN SODIUM 25000 UNITS/D5W 250 ML IV PRN (05:34)
[2021-07-11] MEDS: NITROGLYCERIN 2% (1 GM=INCH) PACKET TP SCH ×4 (06:00→18:00)
[2021-07-11 08:14] VITALS: BP 129/75
[2021-07-11] MEDS: FUROSEMIDE 20 MG/2 ML VIAL IVP SCH ×2 (08:53→20:14)
[2021-07-11] MEDS: ASPIRIN 81 MG CHEWABLE TABLET PO SCH (08:53)
[2021-07-11] MEDS: METOPROLOL TARTRATE 50 MG TABLET PO SCH ×2 (08:53→20:11)
[2021-07-11] MEDS: ATORVASTATIN CALCIUM 40 MG TABLET PO SCH (08:53)
[2021-07-11 11:41] VITALS: BP 108/54
[2021-07-11 15:55] VITALS: BP 107/65
[2021-07-11] MEDS: LORazepam 2 MG/ML VIAL IVP PRN (16:54)
[2021-07-11 19:43] VITALS: BP 129/76
[2021-07-11] MEDS: QUEtiapine FUMARATE 200 MG TABLET PO SCH (20:14)
[2021-07-12 00:37] VITALS: BP 129/56
[2021-07-12 04:28] VITALS: BP 126/57
[2021-07-12] MEDS: NITROGLYCERIN 2% (1 GM=INCH) PACKET TP SCH ×4 (06:00→18:00)
[2021-07-12 07:30] VITALS: BP 120/77
[2021-07-12] MEDS: ASPIRIN 81 MG CHEWABLE TABLET PO SCH (08:16)
[2021-07-12] MEDS: METOPROLOL TARTRATE 50 MG TABLET PO SCH ×2 (08:17→20:35)
[2021-07-12] MEDS: FUROSEMIDE 20 MG/2 ML VIAL IVP SCH ×2 (08:17→20:35)
[2021-07-12] MEDS: ATORVASTATIN CALCIUM 40 MG TABLET PO SCH (08:17)
[2021-07-12 11:51] VITALS: BP 115/83
[2021-07-12] MEDS: LORazepam 2 MG/ML VIAL IVP PRN (15:02)
[2021-07-12 15:30] VITALS: BP 101/72
[2021-07-12 19:51] VITALS: BP 143/65
[2021-07-12] MEDS: QUEtiapine FUMARATE 200 MG TABLET PO SCH (20:35)
[2021-07-13] MEDS: NITROGLYCERIN 2% (1 GM=INCH) PACKET TP SCH ×2 (00:27→05:31)
[2021-07-13 00:40] VITALS: BP 120/77
[2021-07-13 04:02] VITALS: BP 101/52
[2021-07-13 07:47] VITALS: BP 137/76
[2021-07-13] MEDS: ATORVASTATIN CALCIUM 40 MG TABLET PO SCH (08:03)
[2021-07-13] MEDS: METOPROLOL TARTRATE 50 MG TABLET PO SCH (08:03)
[2021-07-13] MEDS: ASPIRIN 81 MG CHEWABLE TABLET PO SCH (08:04)
[2021-07-13] MEDS: FUROSEMIDE 20 MG/2 ML VIAL IVP SCH (08:04)
[2021-07-13 11:06] VITALS: BP 129/78
[2021-07-13] MEDS: SACUBITRIL/VALSARTAN 24-26 MG TABLET PO SCH ×2 (13:10→20:24)
[2021-07-13] MEDS: LORazepam 2 MG/ML VIAL IVP PRN (15:39)
[2021-07-13 15:50] VITALS: BP 115/76
[2021-07-13] MEDS: CARVEDILOL 6.25 MG TABLET PO SCH (20:24)
[2021-07-13] MEDS: QUEtiapine FUMARATE 200 MG TABLET PO SCH (20:24)
[2021-07-13 20:27] VITALS: BP 115/54
[2021-07-14 00:04] VITALS: BP 103/52
[2021-07-14 04:19] VITALS: BP 110/69
[2021-07-14 07:22] VITALS: BP 116/59
[2021-07-14] MEDS: ATORVASTATIN CALCIUM 40 MG TABLET PO SCH (08:45)
[2021-07-14] MEDS: SACUBITRIL/VALSARTAN 24-26 MG TABLET PO SCH (08:45)
[2021-07-14] MEDS: CARVEDILOL 6.25 MG TABLET PO SCH (08:46)
[2021-07-14] MEDS: ASPIRIN 81 MG CHEWABLE TABLET PO SCH (08:46)
[2021-07-14] MEDS ORDERED: FUROSEMIDE 20 MG TABLET PO SCH (09:00)
[2021-07-14 11:33] VITALS: BP 113/71
[2021-07-14 14:28] LABS: COVID AG,FIA SOURCE NASAL SWAB
[2021-07-14 15:06] VITALS: BP 110/69
== END 2021-07-14 16:50 | DRG 280 ==
LOC: EMS 16:09 → 5S 07-10 06:44
PROVIDERS: ADMIT Internal Medicine; ATTEND Internal Medicine
DX: I21.4 Non-ST elevation (NSTEMI) myocardial infarction (principal); I50.41 Acute combined systolic (congestive) and diastolic (congestive) heart failure; R45.851 Suicidal ideations; I42.7 Cardiomyopathy due to drug and external agent; F15.10 Other stimulant abuse, uncomplicated; I11.0 Hypertensive heart disease with heart failure; J44.9 Chronic obstructive pulmonary disease, unspecified; E78.00 Pure hypercholesterolemia, unspecified; F25.1 Schizoaffective disorder, depressive type; F12.10 Cannabis abuse, uncomplicated; Z20.822 Contact with and (suspected) exposure to COVID-19; F31.9 Bipolar disorder, unspecified; Z79.899 Other long term (current) drug therapy; Z88.8 Allergy status to other drugs, medicaments and biological substances; Z82.49 Family history of ischemic heart disease and other diseases of the circulatory system; Z91.14 Patient's other noncompliance with medication regimen; Z72.0 Tobacco use; Z71.6 Tobacco abuse counseling
CPT/HCPCS: 71045; 80048; 80053; 81003; 83880; 84484; 85025; 85610; 85730; 93005; 97162; 99285; C8929; J0360; J1644; J1650; J1940; J2060; J3490; Q9967; 36415-L1; 36415-TC; C8928

== ENCOUNTER 2021-07-13 17:21 | Inpatient (IN) | payer MEDICARE, MEDICAID ==
[~2021-07-13] VITALS: Ht 172.7 cm; Wt 75.3 kg
[~2021-07-13 17:21] MED LIST changes: +OMEG-108 PO; -OMEG-135 PO
[2021-07-14 17:00] VITALS: BP 142/87
[2021-07-14 17:14] VITALS: BP 142/87
[2021-07-14] MEDS ORDERED: INFLUENZA VIRUS VACCINE QVS 2021-22 (6MO+)/PF 60 MCG/0.5 ML SYRINGE IM. ONE (17:45)
[2021-07-14] MEDS: QUEtiapine FUMARATE 100 MG TABLET PO PRN (20:06)
[2021-07-14] MEDS ORDERED: ALBUTEROL SULFATE HFA 90 MCG/PUFF 8 GM INHALER IH PRN (21:00)
[2021-07-14] MEDS ORDERED: ACETAMINOPHEN 325 MG TABLET PO PRN (21:00)
[2021-07-15] MEDS: ASPIRIN 81 MG CHEWABLE TABLET PO SCH (06:33)
[2021-07-15 06:56] LABS: CHOL/HDL RATIO 3.9 (4.2-7.3); FREE T4 (FREE THYROXINE) 0.9 ng/dL (0.76-1.46); THYROID STIMULATING HORMONE 2.2 uIU/mL (0.36-3.74)
[2021-07-15] MEDS: FUROSEMIDE 20 MG TABLET PO SCH (08:05)
[2021-07-15] MEDS: CARVEDILOL 6.25 MG TABLET PO SCH ×2 (08:05→20:30)
[2021-07-15] MEDS: SACUBITRIL/VALSARTAN 24-26 MG TABLET PO SCH ×2 (08:06→17:40)
[2021-07-15] MEDS: ATORVASTATIN CALCIUM 40 MG TABLET PO SCH (08:06)
[2021-07-15 08:36] VITALS: BP 136/77
[2021-07-15 08:46] VITALS: BP 136/77
[2021-07-15] MEDS: LORazepam 2 MG TABLET PO PRN (13:31)
[2021-07-15] MEDS ORDERED: MAGNESIUM HYDROXIDE SUSPENSION 30 ML UDCUP PO PRN (14:30)
[2021-07-15] MEDS ORDERED: DOCUSATE SODIUM 100 MG CAPSULE PO PRN (14:30)
[2021-07-15] MEDS ORDERED: NICOTINE 14 MG/24 HOUR PATCH TD PRN (14:30)
[2021-07-15] MEDS ORDERED: IBUPROFEN 400 MG TABLET PO PRN (14:30)
[2021-07-15] MEDS ORDERED: GuaiFENesin/D-METHORPHAN [SUGAR-FREE] 200-20MG/10 ML SYRUP UDCUP PO PRN (14:30)
[2021-07-15] MEDS ORDERED: PETROLATUM,WHITE 28 GM JELLY TP PRN (14:30)
[2021-07-15] MEDS ORDERED: ALBUTEROL SULFATE HFA 90 MCG/PUFF 8 GM INHALER IH PRN (14:30)
[2021-07-15] MEDS ORDERED: ACETAMINOPHEN 325 MG TABLET PO PRN (14:30)
[2021-07-15] MEDS ORDERED: MAG HYDROX/AL HYDROX/SIMETH ES 30 ML SUSPENSION UDCUP PO PRN (14:30)
[2021-07-15] MEDS ORDERED: LOPERAMIDE HCL 2 MG CAPSULE PO PRN (14:30)
[2021-07-15] MEDS ORDERED: CloNIDine HCL 0.1 MG TABLET PO PRN (14:30)
[2021-07-15] MEDS ORDERED: ONDANSETRON HCL 4 MG TABLET PO PRN (14:30)
[2021-07-15 16:05] VITALS: BP 119/72
[2021-07-15 17:04] VITALS: BP 119/76
[2021-07-15] MEDS: QUEtiapine FUMARATE 200 MG TABLET PO SCH (20:30)
[2021-07-16] MEDS: ASPIRIN 81 MG CHEWABLE TABLET PO SCH (06:38)
[2021-07-16 08:38] VITALS: BP 100/57
[2021-07-16] MEDS: OMEGA-3/DHA/EPA/FISH OIL 1,000 MG CAPSULE PO SCH (08:58)
[2021-07-16] MEDS: SACUBITRIL/VALSARTAN 24-26 MG TABLET PO SCH ×2 (08:58→16:42)
[2021-07-16] MEDS: FUROSEMIDE 20 MG TABLET PO SCH (08:58)
[2021-07-16] MEDS: ATORVASTATIN CALCIUM 40 MG TABLET PO SCH (08:58)
[2021-07-16] MEDS: PANTOPRAZOLE SODIUM 40 MG DR TABLET PO SCH (08:58)
[2021-07-16] MEDS: CARVEDILOL 6.25 MG TABLET PO SCH ×2 (08:59→20:24)
[2021-07-16 16:22] VITALS: BP 129/66
[2021-07-16] MEDS: LORazepam 2 MG TABLET PO PRN (16:43)
[2021-07-16] MEDS: QUEtiapine FUMARATE 100 MG TABLET PO PRN (16:43)
[2021-07-16] MEDS: QUEtiapine FUMARATE 200 MG TABLET PO SCH (20:24)
[2021-07-17] MEDS: ASPIRIN 81 MG CHEWABLE TABLET PO SCH (06:44)
[2021-07-17] MEDS: PANTOPRAZOLE SODIUM 40 MG DR TABLET PO SCH (08:32)
[2021-07-17] MEDS: ATORVASTATIN CALCIUM 40 MG TABLET PO SCH (08:32)
[2021-07-17] MEDS: SACUBITRIL/VALSARTAN 24-26 MG TABLET PO SCH ×2 (08:32→16:54)
[2021-07-17] MEDS: FUROSEMIDE 20 MG TABLET PO SCH (08:32)
[2021-07-17] MEDS: CARVEDILOL 6.25 MG TABLET PO SCH ×2 (08:32→21:18)
[2021-07-17] MEDS: OMEGA-3/DHA/EPA/FISH OIL 1,000 MG CAPSULE PO SCH (08:34)
[2021-07-17 09:48] VITALS: BP 121/56
[2021-07-17 16:00] VITALS: BP 135/68
[2021-07-17] MEDS: QUEtiapine FUMARATE 100 MG TABLET PO PRN (16:54)
[2021-07-17] MEDS: LORazepam 2 MG TABLET PO PRN (17:07)
[2021-07-17] MEDS: QUEtiapine FUMARATE 200 MG TABLET PO SCH (21:18)
[2021-07-18] MEDS: ASPIRIN 81 MG CHEWABLE TABLET PO SCH (06:37)
[2021-07-18 08:21] VITALS: BP 127/73
[2021-07-18] MEDS: PANTOPRAZOLE SODIUM 40 MG DR TABLET PO SCH (08:26)
[2021-07-18] MEDS: ATORVASTATIN CALCIUM 40 MG TABLET PO SCH (08:26)
[2021-07-18] MEDS: SACUBITRIL/VALSARTAN 24-26 MG TABLET PO SCH ×2 (08:26→16:21)
[2021-07-18] MEDS: FUROSEMIDE 20 MG TABLET PO SCH (08:27)
[2021-07-18] MEDS: CARVEDILOL 6.25 MG TABLET PO SCH ×2 (08:27→20:51)
[2021-07-18] MEDS: OMEGA-3/DHA/EPA/FISH OIL 1,000 MG CAPSULE PO SCH (08:31)
[2021-07-18 16:56] VITALS: BP 139/75
[2021-07-18 20:50] VITALS: BP 141/72
[2021-07-18] MEDS: QUEtiapine FUMARATE 200 MG TABLET PO SCH (20:52)
[2021-07-19 01:20] VITALS: BP 138/80
[2021-07-19] MEDS: ZOLPIDEM TARTRATE 10 MG TABLET PO PRN (01:27)
[2021-07-19] MEDS: ASPIRIN 81 MG CHEWABLE TABLET PO SCH (06:36)
[2021-07-19] MEDS: OMEGA-3/DHA/EPA/FISH OIL 1,000 MG CAPSULE PO SCH (08:28)
[2021-07-19] MEDS: ATORVASTATIN CALCIUM 40 MG TABLET PO SCH (08:28)
[2021-07-19] MEDS: CARVEDILOL 6.25 MG TABLET PO SCH ×2 (08:29→20:10)
[2021-07-19] MEDS: FUROSEMIDE 20 MG TABLET PO SCH (08:29)
[2021-07-19] MEDS: PANTOPRAZOLE SODIUM 40 MG DR TABLET PO SCH (08:29)
[2021-07-19] MEDS: SACUBITRIL/VALSARTAN 24-26 MG TABLET PO SCH ×2 (08:29→16:13)
[2021-07-19 09:45] VITALS: BP 127/62
[2021-07-19 16:00] VITALS: BP 109/66
[2021-07-19] MEDS: QUEtiapine FUMARATE 200 MG TABLET PO SCH (20:10)
[2021-07-20 02:10] VITALS: BP 145/80
[2021-07-20] MEDS: ZOLPIDEM TARTRATE 10 MG TABLET PO PRN (02:16)
[2021-07-20] MEDS: ASPIRIN 81 MG CHEWABLE TABLET PO SCH (06:38)
[2021-07-20] MEDS: ATORVASTATIN CALCIUM 40 MG TABLET PO SCH (08:07)
[2021-07-20] MEDS: FUROSEMIDE 20 MG TABLET PO SCH (08:07)
[2021-07-20] MEDS: PANTOPRAZOLE SODIUM 40 MG DR TABLET PO SCH (08:07)
[2021-07-20] MEDS: CARVEDILOL 6.25 MG TABLET PO SCH ×2 (08:08→20:02)
[2021-07-20] MEDS: SACUBITRIL/VALSARTAN 24-26 MG TABLET PO SCH ×2 (08:08→16:20)
[2021-07-20] MEDS: OMEGA-3/DHA/EPA/FISH OIL 1,000 MG CAPSULE PO SCH (08:08)
[2021-07-20 08:30] VITALS: BP 115/59
[2021-07-20 10:48] LABS: COVID AG,FIA SOURCE NASAL SWAB
[2021-07-20 17:18] VITALS: BP 109/71
[2021-07-20] MEDS: QUEtiapine FUMARATE 200 MG TABLET PO SCH (20:02)
[2021-07-21 00:59] VITALS: BP 129/80
[2021-07-21] MEDS: ASPIRIN 81 MG CHEWABLE TABLET PO SCH (06:32)
[2021-07-21 08:00] VITALS: BP 111/74
[2021-07-21] MEDS: PANTOPRAZOLE SODIUM 40 MG DR TABLET PO SCH (09:04)
[2021-07-21] MEDS: ATORVASTATIN CALCIUM 40 MG TABLET PO SCH (09:04)
[2021-07-21] MEDS: OMEGA-3/DHA/EPA/FISH OIL 1,000 MG CAPSULE PO SCH (09:04)
[2021-07-21] MEDS: FUROSEMIDE 20 MG TABLET PO SCH (09:04)
[2021-07-21] MEDS: CARVEDILOL 6.25 MG TABLET PO SCH ×2 (09:04→20:29)
[2021-07-21] MEDS: SACUBITRIL/VALSARTAN 24-26 MG TABLET PO SCH ×2 (09:04→17:12)
[2021-07-21 16:17] VITALS: BP 109/63
[2021-07-21] MEDS: QUEtiapine FUMARATE 100 MG TABLET PO PRN (17:13)
[2021-07-21] MEDS: QUEtiapine FUMARATE 200 MG TABLET PO SCH (20:29)
[2021-07-22] MEDS: ASPIRIN 81 MG CHEWABLE TABLET PO SCH (06:54)
[2021-07-22] MEDS: SACUBITRIL/VALSARTAN 24-26 MG TABLET PO SCH ×2 (08:16→16:22)
[2021-07-22] MEDS: CARVEDILOL 6.25 MG TABLET PO SCH ×2 (08:17→20:19)
[2021-07-22] MEDS: OMEGA-3/DHA/EPA/FISH OIL 1,000 MG CAPSULE PO SCH (08:17)
[2021-07-22] MEDS: PANTOPRAZOLE SODIUM 40 MG DR TABLET PO SCH (08:17)
[2021-07-22] MEDS: ATORVASTATIN CALCIUM 40 MG TABLET PO SCH (08:18)
[2021-07-22] MEDS: FUROSEMIDE 20 MG TABLET PO SCH (08:18)
[2021-07-22 08:30] VITALS: BP 115/64
[2021-07-22 16:36] VITALS: BP 119/64
[2021-07-22] MEDS: QUEtiapine FUMARATE 200 MG TABLET PO SCH (20:18)
[2021-07-22 20:22] VITALS: BP 147/77
[2021-07-22] MEDS: ZOLPIDEM TARTRATE 10 MG TABLET PO PRN (22:53)
[2021-07-23] MEDS: ASPIRIN 81 MG CHEWABLE TABLET PO SCH (06:42)
[2021-07-23 08:58] VITALS: BP 110/54
[2021-07-23] MEDS: OMEGA-3/DHA/EPA/FISH OIL 1,000 MG CAPSULE PO SCH (09:02)
[2021-07-23] MEDS: SACUBITRIL/VALSARTAN 24-26 MG TABLET PO SCH ×2 (09:02→16:09)
[2021-07-23] MEDS: PANTOPRAZOLE SODIUM 40 MG DR TABLET PO SCH (09:02)
[2021-07-23] MEDS: FUROSEMIDE 20 MG TABLET PO SCH (09:02)
[2021-07-23] MEDS: CARVEDILOL 6.25 MG TABLET PO SCH ×2 (09:02→20:18)
[2021-07-23] MEDS: ATORVASTATIN CALCIUM 40 MG TABLET PO SCH (09:02)
[2021-07-23 16:18] VITALS: BP 126/71
[2021-07-23] MEDS: QUEtiapine FUMARATE 200 MG TABLET PO SCH (20:20)
[2021-07-24 00:11] VITALS: BP 143/69
[2021-07-24] MEDS: ZOLPIDEM TARTRATE 10 MG TABLET PO PRN (00:11)
[2021-07-24] MEDS: ASPIRIN 81 MG CHEWABLE TABLET PO SCH (06:52)
[2021-07-24] MEDS: CARVEDILOL 6.25 MG TABLET PO SCH ×2 (08:40→20:03)
[2021-07-24] MEDS: SACUBITRIL/VALSARTAN 24-26 MG TABLET PO SCH ×2 (08:41→16:22)
[2021-07-24] MEDS: PANTOPRAZOLE SODIUM 40 MG DR TABLET PO SCH (08:41)
[2021-07-24] MEDS: OMEGA-3/DHA/EPA/FISH OIL 1,000 MG CAPSULE PO SCH (08:41)
[2021-07-24] MEDS: ATORVASTATIN CALCIUM 40 MG TABLET PO SCH (08:41)
[2021-07-24] MEDS: FUROSEMIDE 20 MG TABLET PO SCH (08:41)
[2021-07-24 10:16] VITALS: BP 150/74
[2021-07-24 17:23] VITALS: BP 135/76
[2021-07-24] MEDS: QUEtiapine FUMARATE 200 MG TABLET PO SCH (20:03)
[2021-07-25] MEDS: ZOLPIDEM TARTRATE 10 MG TABLET PO PRN
[2021-07-25 00:15] VITALS: BP 139/59
[2021-07-25] MEDS: ASPIRIN 81 MG CHEWABLE TABLET PO SCH (06:59)
[2021-07-25 08:30] VITALS: BP 114/59
[2021-07-25] MEDS: OMEGA-3/DHA/EPA/FISH OIL 1,000 MG CAPSULE PO SCH (08:59)
[2021-07-25] MEDS: SACUBITRIL/VALSARTAN 24-26 MG TABLET PO SCH ×2 (08:59→17:26)
[2021-07-25] MEDS: ATORVASTATIN CALCIUM 40 MG TABLET PO SCH (08:59)
[2021-07-25] MEDS: CARVEDILOL 6.25 MG TABLET PO SCH ×2 (08:59→21:30)
[2021-07-25] MEDS: PANTOPRAZOLE SODIUM 40 MG DR TABLET PO SCH (08:59)
[2021-07-25] MEDS: FUROSEMIDE 20 MG TABLET PO SCH (08:59)
[2021-07-25 16:31] VITALS: BP 120/68
[2021-07-25] MEDS: QUEtiapine FUMARATE 100 MG TABLET PO PRN (17:27)
[2021-07-25] MEDS: QUEtiapine FUMARATE 200 MG TABLET PO SCH (21:30)
[2021-07-26] MEDS: ZOLPIDEM TARTRATE 10 MG TABLET PO PRN (01:27)
[2021-07-26] MEDS: ASPIRIN 81 MG CHEWABLE TABLET PO SCH (06:33)
[2021-07-26] MEDS: ATORVASTATIN CALCIUM 40 MG TABLET PO SCH (09:20)
[2021-07-26] MEDS: OMEGA-3/DHA/EPA/FISH OIL 1,000 MG CAPSULE PO SCH (09:20)
[2021-07-26] MEDS: FUROSEMIDE 20 MG TABLET PO SCH (09:20)
[2021-07-26] MEDS: PANTOPRAZOLE SODIUM 40 MG DR TABLET PO SCH (09:20)
[2021-07-26] MEDS: SACUBITRIL/VALSARTAN 24-26 MG TABLET PO SCH ×2 (09:21→17:17)
[2021-07-26] MEDS: CARVEDILOL 6.25 MG TABLET PO SCH ×2 (09:21→21:15)
[2021-07-26 09:44] VITALS: BP 112/60
[2021-07-26 12:24] LABS: COVID AG,FIA SOURCE NASAL SWAB
[2021-07-26 16:38] VITALS: BP 108/67
[2021-07-26] MEDS: QUEtiapine FUMARATE 100 MG TABLET PO PRN (17:17)
[2021-07-26] MEDS: QUEtiapine FUMARATE 200 MG TABLET PO SCH (21:15)
[2021-07-26 21:17] VITALS: BP 110/68
[2021-07-27] MEDS: ZOLPIDEM TARTRATE 10 MG TABLET PO PRN (01:23)
[2021-07-27 01:31] VITALS: BP 117/70
[2021-07-27] MEDS: ASPIRIN 81 MG CHEWABLE TABLET PO SCH (06:07)
[2021-07-27 10:08] VITALS: BP 138/65
[2021-07-27] MEDS: SACUBITRIL/VALSARTAN 24-26 MG TABLET PO SCH ×2 (10:55→17:25)
[2021-07-27] MEDS: OMEGA-3/DHA/EPA/FISH OIL 1,000 MG CAPSULE PO SCH (10:55)
[2021-07-27] MEDS: PANTOPRAZOLE SODIUM 40 MG DR TABLET PO SCH (10:56)
[2021-07-27] MEDS: CARVEDILOL 6.25 MG TABLET PO SCH ×2 (10:56→20:52)
[2021-07-27] MEDS: ATORVASTATIN CALCIUM 40 MG TABLET PO SCH (10:56)
[2021-07-27] MEDS: FUROSEMIDE 20 MG TABLET PO SCH (10:56)
[2021-07-27 16:00] VITALS: BP 126/70
[2021-07-27] MEDS: QUEtiapine FUMARATE 100 MG TABLET PO PRN (17:25)
[2021-07-27] MEDS: QUEtiapine FUMARATE 200 MG TABLET PO SCH (20:52)
[2021-07-28 03:45] VITALS: BP 108/67
[2021-07-28] MEDS: LORazepam 2 MG TABLET PO PRN ×2 (03:58→16:14)
[2021-07-28] MEDS: ASPIRIN 81 MG CHEWABLE TABLET PO SCH (06:32)
[2021-07-28 08:00] VITALS: BP 118/62
[2021-07-28] MEDS: ATORVASTATIN CALCIUM 40 MG TABLET PO SCH (09:29)
[2021-07-28] MEDS: FUROSEMIDE 20 MG TABLET PO SCH (09:30)
[2021-07-28] MEDS: CARVEDILOL 6.25 MG TABLET PO SCH ×2 (09:30→20:38)
[2021-07-28] MEDS: SACUBITRIL/VALSARTAN 24-26 MG TABLET PO SCH ×2 (09:30→17:30)
[2021-07-28] MEDS: OMEGA-3/DHA/EPA/FISH OIL 1,000 MG CAPSULE PO SCH (09:30)
[2021-07-28] MEDS: PANTOPRAZOLE SODIUM 40 MG DR TABLET PO SCH (09:30)
[2021-07-28 16:44] VITALS: BP 119/61
[2021-07-28] MEDS: QUEtiapine FUMARATE 200 MG TABLET PO SCH (20:38)
[2021-07-28 20:45] VITALS: BP 124/66
[2021-07-29 00:50] VITALS: BP 145/80
[2021-07-29] MEDS: ZOLPIDEM TARTRATE 10 MG TABLET PO PRN (01:02)
[2021-07-29 05:30] VITALS: BP 129/75
[2021-07-29] MEDS: LORazepam 2 MG TABLET PO PRN ×2 (05:42→19:55)
[2021-07-29] MEDS: ASPIRIN 81 MG CHEWABLE TABLET PO SCH (06:50)
[2021-07-29 08:58] VITALS: BP 140/73
[2021-07-29] MEDS: ATORVASTATIN CALCIUM 40 MG TABLET PO SCH (09:08)
[2021-07-29] MEDS: FUROSEMIDE 20 MG TABLET PO SCH (09:08)
[2021-07-29] MEDS: OMEGA-3/DHA/EPA/FISH OIL 1,000 MG CAPSULE PO SCH (09:08)
[2021-07-29] MEDS: SACUBITRIL/VALSARTAN 24-26 MG TABLET PO SCH ×2 (09:08→16:56)
[2021-07-29] MEDS: PANTOPRAZOLE SODIUM 40 MG DR TABLET PO SCH (09:09)
[2021-07-29] MEDS: CARVEDILOL 6.25 MG TABLET PO SCH ×2 (09:09→20:53)
[2021-07-29 16:20] VITALS: BP 114/66
[2021-07-29] MEDS: QUEtiapine FUMARATE 100 MG TABLET PO PRN (16:56)
[2021-07-29] MEDS: QUEtiapine FUMARATE 200 MG TABLET PO SCH (20:53)
[2021-07-30 04:05] VITALS: BP 126/67
[2021-07-30] MEDS: LORazepam 2 MG TABLET PO PRN (04:08)
[2021-07-30] MEDS: ASPIRIN 81 MG CHEWABLE TABLET PO SCH (06:44)
[2021-07-30 08:50] VITALS: BP 157/69
[2021-07-30] MEDS: OMEGA-3/DHA/EPA/FISH OIL 1,000 MG CAPSULE PO SCH (09:30)
[2021-07-30] MEDS: PANTOPRAZOLE SODIUM 40 MG DR TABLET PO SCH (09:30)
[2021-07-30] MEDS: CARVEDILOL 6.25 MG TABLET PO SCH ×2 (09:30→20:10)
[2021-07-30] MEDS: ATORVASTATIN CALCIUM 40 MG TABLET PO SCH (09:30)
[2021-07-30] MEDS: FUROSEMIDE 20 MG TABLET PO SCH (09:30)
[2021-07-30] MEDS: SACUBITRIL/VALSARTAN 24-26 MG TABLET PO SCH ×2 (09:30→17:09)
[2021-07-30 16:46] VITALS: BP 130/83
[2021-07-30] MEDS: QUEtiapine FUMARATE 100 MG TABLET PO PRN (17:09)
[2021-07-30] MEDS: QUEtiapine FUMARATE 200 MG TABLET PO SCH (20:10)
[2021-07-30] MEDS: ZOLPIDEM TARTRATE 10 MG TABLET PO PRN (20:56)
[2021-07-31] MEDS: ASPIRIN 81 MG CHEWABLE TABLET PO SCH (06:56)
[2021-07-31 09:13] VITALS: BP 110/62
[2021-07-31] MEDS: SACUBITRIL/VALSARTAN 24-26 MG TABLET PO SCH ×2 (10:23→17:00)
[2021-07-31] MEDS: CARVEDILOL 6.25 MG TABLET PO SCH ×2 (10:23→20:43)
[2021-07-31] MEDS: PANTOPRAZOLE SODIUM 40 MG DR TABLET PO SCH (10:25)
[2021-07-31] MEDS: OMEGA-3/DHA/EPA/FISH OIL 1,000 MG CAPSULE PO SCH (10:25)
[2021-07-31] MEDS: FUROSEMIDE 20 MG TABLET PO SCH (10:26)
[2021-07-31] MEDS: ATORVASTATIN CALCIUM 40 MG TABLET PO SCH (10:26)
[2021-07-31 16:38] VITALS: BP 111/69
[2021-07-31] MEDS: QUEtiapine FUMARATE 100 MG TABLET PO PRN (17:40)
[2021-07-31] MEDS: QUEtiapine FUMARATE 200 MG TABLET PO SCH (20:43)
[2021-07-31] MEDS: ZOLPIDEM TARTRATE 10 MG TABLET PO PRN (20:43)
[2021-08-01] MEDS: LORazepam 2 MG TABLET PO PRN (03:56)
[2021-08-01 04:03] VITALS: BP 108/60
[2021-08-01] MEDS: ASPIRIN 81 MG CHEWABLE TABLET PO SCH (06:53)
[2021-08-01 08:08] VITALS: BP 127/58
[2021-08-01] MEDS: CARVEDILOL 6.25 MG TABLET PO SCH ×2 (08:39→20:13)
[2021-08-01] MEDS: ATORVASTATIN CALCIUM 40 MG TABLET PO SCH (08:39)
[2021-08-01] MEDS: OMEGA-3/DHA/EPA/FISH OIL 1,000 MG CAPSULE PO SCH (08:39)
[2021-08-01] MEDS: FUROSEMIDE 20 MG TABLET PO SCH (08:39)
[2021-08-01] MEDS: PANTOPRAZOLE SODIUM 40 MG DR TABLET PO SCH (08:39)
[2021-08-01] MEDS: SACUBITRIL/VALSARTAN 24-26 MG TABLET PO SCH ×2 (08:39→16:17)
[2021-08-01 10:19] VITALS: BP 127/68
[2021-08-01 16:34] VITALS: BP 105/53
[2021-08-01] MEDS: QUEtiapine FUMARATE 200 MG TABLET PO SCH (20:13)
[2021-08-02] MEDS: LORazepam 2 MG TABLET PO PRN ×2 (03:45→20:09)
[2021-08-02] MEDS: ASPIRIN 81 MG CHEWABLE TABLET PO SCH (06:36)
[2021-08-02 08:46] VITALS: BP 101/52
[2021-08-02] MEDS: CARVEDILOL 6.25 MG TABLET PO SCH ×2 (09:00→20:08)
[2021-08-02] MEDS: SACUBITRIL/VALSARTAN 24-26 MG TABLET PO SCH ×2 (09:17→16:07)
[2021-08-02] MEDS: FUROSEMIDE 20 MG TABLET PO SCH (09:18)
[2021-08-02] MEDS: OMEGA-3/DHA/EPA/FISH OIL 1,000 MG CAPSULE PO SCH (09:18)
[2021-08-02] MEDS: ATORVASTATIN CALCIUM 40 MG TABLET PO SCH (09:18)
[2021-08-02] MEDS: PANTOPRAZOLE SODIUM 40 MG DR TABLET PO SCH (09:18)
[2021-08-02 14:06] LABS: COVID AG,FIA SOURCE NASOPHARYNGEAL
[2021-08-02 16:14] VITALS: BP 132/81
[2021-08-02] MEDS: QUEtiapine FUMARATE 200 MG TABLET PO SCH (20:08)
[2021-08-03] MEDS: ZOLPIDEM TARTRATE 10 MG TABLET PO PRN (02:21)
[2021-08-03 02:22] VITALS: BP 114/57
[2021-08-03] MEDS: ASPIRIN 81 MG CHEWABLE TABLET PO SCH (06:35)
[2021-08-03] MEDS: PANTOPRAZOLE SODIUM 40 MG DR TABLET PO SCH (08:39)
[2021-08-03] MEDS: SACUBITRIL/VALSARTAN 24-26 MG TABLET PO SCH ×2 (08:40→16:18)
[2021-08-03] MEDS: FUROSEMIDE 20 MG TABLET PO SCH (08:40)
[2021-08-03] MEDS: OMEGA-3/DHA/EPA/FISH OIL 1,000 MG CAPSULE PO SCH (08:40)
[2021-08-03] MEDS: CARVEDILOL 6.25 MG TABLET PO SCH ×2 (08:41→20:07)
[2021-08-03] MEDS: ATORVASTATIN CALCIUM 40 MG TABLET PO SCH (08:41)
[2021-08-03 09:57] VITALS: BP 110/55
[2021-08-03] MEDS: QUEtiapine FUMARATE 200 MG TABLET PO SCH (20:07)
[2021-08-03] MEDS: LORazepam 2 MG TABLET PO PRN (23:12)
[2021-08-04] MEDS: ASPIRIN 81 MG CHEWABLE TABLET PO SCH (07:15)
[2021-08-04] MEDS: OMEGA-3/DHA/EPA/FISH OIL 1,000 MG CAPSULE PO SCH (08:39)
[2021-08-04] MEDS: FUROSEMIDE 20 MG TABLET PO SCH (08:39)
[2021-08-04] MEDS: PANTOPRAZOLE SODIUM 40 MG DR TABLET PO SCH (08:39)
[2021-08-04] MEDS: SACUBITRIL/VALSARTAN 24-26 MG TABLET PO SCH ×2 (08:39→17:44)
[2021-08-04] MEDS: CARVEDILOL 6.25 MG TABLET PO SCH ×2 (08:39→20:39)
[2021-08-04] MEDS: ATORVASTATIN CALCIUM 40 MG TABLET PO SCH (08:39)
[2021-08-04 08:40] VITALS: BP 115/63
[2021-08-04 16:25] VITALS: BP 144/76
[2021-08-04] MEDS: QUEtiapine FUMARATE 100 MG TABLET PO PRN (17:44)
[2021-08-04] MEDS: QUEtiapine FUMARATE 200 MG TABLET PO SCH (20:39)
[2021-08-04] MEDS: ZOLPIDEM TARTRATE 10 MG TABLET PO PRN (20:39)
[2021-08-05 03:22] VITALS: BP 125/76
[2021-08-05] MEDS: LORazepam 2 MG TABLET PO PRN (03:27)
[2021-08-05] MEDS: ASPIRIN 81 MG CHEWABLE TABLET PO SCH ×2 (07:02→09:33)
[2021-08-05 09:00] VITALS: BP 121/61
[2021-08-05] MEDS: PANTOPRAZOLE SODIUM 40 MG DR TABLET PO SCH (09:32)
[2021-08-05] MEDS: OMEGA-3/DHA/EPA/FISH OIL 1,000 MG CAPSULE PO SCH (09:33)
[2021-08-05] MEDS: CARVEDILOL 6.25 MG TABLET PO SCH ×2 (09:33→20:02)
[2021-08-05] MEDS: SACUBITRIL/VALSARTAN 24-26 MG TABLET PO SCH ×2 (09:33→16:08)
[2021-08-05] MEDS: ATORVASTATIN CALCIUM 40 MG TABLET PO SCH (09:34)
[2021-08-05] MEDS: FUROSEMIDE 20 MG TABLET PO SCH (09:34)
[2021-08-05 18:00] VITALS: BP 148/80
[2021-08-05] MEDS: QUEtiapine FUMARATE 200 MG TABLET PO SCH (20:02)
[2021-08-05] MEDS: ZOLPIDEM TARTRATE 10 MG TABLET PO PRN (22:23)
[2021-08-06] MEDS: ASPIRIN 81 MG CHEWABLE TABLET PO SCH (06:29)
[2021-08-06] MEDS: PANTOPRAZOLE SODIUM 40 MG DR TABLET PO SCH (08:43)
[2021-08-06] MEDS: ATORVASTATIN CALCIUM 40 MG TABLET PO SCH (08:43)
[2021-08-06] MEDS: CARVEDILOL 6.25 MG TABLET PO SCH ×2 (08:43→20:13)
[2021-08-06] MEDS: OMEGA-3/DHA/EPA/FISH OIL 1,000 MG CAPSULE PO SCH (08:43)
[2021-08-06] MEDS: SACUBITRIL/VALSARTAN 24-26 MG TABLET PO SCH ×2 (08:44→16:21)
[2021-08-06] MEDS: FUROSEMIDE 20 MG TABLET PO SCH (08:44)
[2021-08-06 09:45] VITALS: BP 138/73
[2021-08-06 16:35] VITALS: BP 126/79
[2021-08-06] MEDS: QUEtiapine FUMARATE 200 MG TABLET PO SCH (20:13)
[2021-08-07] MEDS: ZOLPIDEM TARTRATE 10 MG TABLET PO PRN (00:32)
[2021-08-07 00:35] VITALS: BP 141/63
[2021-08-07] MEDS: ASPIRIN 81 MG CHEWABLE TABLET PO SCH (06:31)
[2021-08-07 08:01] VITALS: BP 104/58
[2021-08-07] MEDS: ATORVASTATIN CALCIUM 40 MG TABLET PO SCH (08:30)
[2021-08-07] MEDS: CARVEDILOL 6.25 MG TABLET PO SCH ×3 (08:30→20:48)
[2021-08-07] MEDS: FUROSEMIDE 20 MG TABLET PO SCH (08:31)
[2021-08-07] MEDS: PANTOPRAZOLE SODIUM 40 MG DR TABLET PO SCH (08:31)
[2021-08-07] MEDS: OMEGA-3/DHA/EPA/FISH OIL 1,000 MG CAPSULE PO SCH (08:31)
[2021-08-07] MEDS: SACUBITRIL/VALSARTAN 24-26 MG TABLET PO SCH ×3 (08:32→17:00)
[2021-08-07] MEDS: QUEtiapine FUMARATE 25 MG TABLET PO SCH (12:47)
[2021-08-07 15:06] LABS: COVID AG,FIA SOURCE NASAL SWAB
[2021-08-07 16:37] VITALS: BP 104/59
[2021-08-07] MEDS: QUEtiapine FUMARATE 100 MG TABLET PO PRN (17:00)
[2021-08-07] MEDS: QUEtiapine FUMARATE 200 MG TABLET PO SCH (20:48)
[2021-08-08 02:15] VITALS: BP 120/62
[2021-08-08] MEDS: HydrOXYzine PAMOATE 25 MG CAPSULE PO PRN (02:28)
[2021-08-08] MEDS: ASPIRIN 81 MG CHEWABLE TABLET PO SCH (06:33)
[2021-08-08 08:02] VITALS: BP 153/70
[2021-08-08] MEDS: PANTOPRAZOLE SODIUM 40 MG DR TABLET PO SCH (08:26)
[2021-08-08] MEDS: ATORVASTATIN CALCIUM 40 MG TABLET PO SCH (08:26)
[2021-08-08] MEDS: QUEtiapine FUMARATE 25 MG TABLET PO SCH (08:26)
[2021-08-08] MEDS: SACUBITRIL/VALSARTAN 24-26 MG TABLET PO SCH ×2 (08:26→16:07)
[2021-08-08] MEDS: FUROSEMIDE 20 MG TABLET PO SCH (08:26)
[2021-08-08] MEDS: OMEGA-3/DHA/EPA/FISH OIL 1,000 MG CAPSULE PO SCH (08:27)
[2021-08-08] MEDS: CARVEDILOL 6.25 MG TABLET PO SCH ×2 (08:27→20:06)
[2021-08-08 17:00] VITALS: BP 109/69
[2021-08-08] MEDS: QUEtiapine FUMARATE 200 MG TABLET PO SCH (20:06)
[2021-08-09] MEDS: ASPIRIN 81 MG CHEWABLE TABLET PO SCH (06:35)
[2021-08-09] MEDS: ATORVASTATIN CALCIUM 40 MG TABLET PO SCH (08:30)
[2021-08-09] MEDS: CARVEDILOL 6.25 MG TABLET PO SCH ×2 (08:30→20:30)
[2021-08-09] MEDS: OMEGA-3/DHA/EPA/FISH OIL 1,000 MG CAPSULE PO SCH (08:30)
[2021-08-09] MEDS: SACUBITRIL/VALSARTAN 24-26 MG TABLET PO SCH ×2 (08:30→17:16)
[2021-08-09] MEDS: PANTOPRAZOLE SODIUM 40 MG DR TABLET PO SCH (08:30)
[2021-08-09] MEDS: QUEtiapine FUMARATE 25 MG TABLET PO SCH (08:30)
[2021-08-09] MEDS: FUROSEMIDE 20 MG TABLET PO SCH (08:38)
[2021-08-09 11:29] VITALS: BP 153/76
[2021-08-09 16:00] VITALS: BP 105/64
[2021-08-09] MEDS: QUEtiapine FUMARATE 100 MG TABLET PO PRN (16:46)
[2021-08-09 17:00] VITALS: BP 105/64
[2021-08-09] MEDS: QUEtiapine FUMARATE 200 MG TABLET PO SCH (20:30)
[2021-08-10] MEDS: ASPIRIN 81 MG CHEWABLE TABLET PO SCH ×2 (06:44→08:10)
[2021-08-10 08:00] VITALS: BP 147/70
[2021-08-10] MEDS: QUEtiapine FUMARATE 25 MG TABLET PO SCH (08:10)
[2021-08-10] MEDS: OMEGA-3/DHA/EPA/FISH OIL 1,000 MG CAPSULE PO SCH (08:11)
[2021-08-10] MEDS: PANTOPRAZOLE SODIUM 40 MG DR TABLET PO SCH (08:11)
[2021-08-10] MEDS: SACUBITRIL/VALSARTAN 24-26 MG TABLET PO SCH ×2 (08:11→16:34)
[2021-08-10] MEDS: FUROSEMIDE 20 MG TABLET PO SCH (08:11)
[2021-08-10] MEDS: ATORVASTATIN CALCIUM 40 MG TABLET PO SCH (08:12)
[2021-08-10] MEDS: CARVEDILOL 6.25 MG TABLET PO SCH ×2 (08:12→20:56)
[2021-08-10 16:58] VITALS: BP 116/60
[2021-08-10] MEDS: QUEtiapine FUMARATE 200 MG TABLET PO SCH (20:56)
[2021-08-11] MEDS: ASPIRIN 81 MG CHEWABLE TABLET PO SCH (06:35)
[2021-08-11] MEDS: OMEGA-3/DHA/EPA/FISH OIL 1,000 MG CAPSULE PO SCH (08:47)
[2021-08-11] MEDS: CARVEDILOL 6.25 MG TABLET PO SCH ×2 (08:47→20:12)
[2021-08-11] MEDS: SACUBITRIL/VALSARTAN 24-26 MG TABLET PO SCH ×2 (08:47→16:03)
[2021-08-11] MEDS: PANTOPRAZOLE SODIUM 40 MG DR TABLET PO SCH (08:47)
[2021-08-11] MEDS: ATORVASTATIN CALCIUM 40 MG TABLET PO SCH (08:47)
[2021-08-11] MEDS: FUROSEMIDE 20 MG TABLET PO SCH (08:47)
[2021-08-11] MEDS: QUEtiapine FUMARATE 25 MG TABLET PO SCH (08:48)
[2021-08-11 08:59] VITALS: BP 132/66
[2021-08-11 16:00] VITALS: BP 130/74
[2021-08-11] MEDS: QUEtiapine FUMARATE 100 MG TABLET PO PRN (20:12)
[2021-08-11] MEDS: QUEtiapine FUMARATE 200 MG TABLET PO SCH (20:14)
[2021-08-11 22:59] VITALS: BP 125/75
[2021-08-12] MEDS: ASPIRIN 81 MG CHEWABLE TABLET PO SCH (06:52)
[2021-08-12] MEDS: ATORVASTATIN CALCIUM 40 MG TABLET PO SCH (08:21)
[2021-08-12] MEDS: PANTOPRAZOLE SODIUM 40 MG DR TABLET PO SCH (08:21)
[2021-08-12] MEDS: QUEtiapine FUMARATE 25 MG TABLET PO SCH (08:21)
[2021-08-12] MEDS: FUROSEMIDE 20 MG TABLET PO SCH (08:21)
[2021-08-12] MEDS: CARVEDILOL 6.25 MG TABLET PO SCH ×2 (08:21→20:45)
[2021-08-12] MEDS: SACUBITRIL/VALSARTAN 24-26 MG TABLET PO SCH ×2 (08:21→17:15)
[2021-08-12] MEDS: OMEGA-3/DHA/EPA/FISH OIL 1,000 MG CAPSULE PO SCH (08:22)
[2021-08-12 08:55] VITALS: BP 127/72
[2021-08-12 16:07] VITALS: BP 128/82
[2021-08-12] MEDS: QUEtiapine FUMARATE 100 MG TABLET PO PRN (17:15)
[2021-08-12] MEDS: HydrOXYzine PAMOATE 25 MG CAPSULE PO PRN (18:14)
[2021-08-12] MEDS: QUEtiapine FUMARATE 200 MG TABLET PO SCH (20:45)
[2021-08-13] MEDS: ASPIRIN 81 MG CHEWABLE TABLET PO SCH (06:33)
[2021-08-13 08:00] VITALS: BP 103/58
[2021-08-13] MEDS: PANTOPRAZOLE SODIUM 40 MG DR TABLET PO SCH (08:58)
[2021-08-13] MEDS: SACUBITRIL/VALSARTAN 24-26 MG TABLET PO SCH ×2 (08:58→17:36)
[2021-08-13] MEDS: QUEtiapine FUMARATE 25 MG TABLET PO SCH (08:58)
[2021-08-13] MEDS: CARVEDILOL 6.25 MG TABLET PO SCH ×2 (08:58→21:00)
[2021-08-13] MEDS: FUROSEMIDE 20 MG TABLET PO SCH (08:58)
[2021-08-13] MEDS: OMEGA-3/DHA/EPA/FISH OIL 1,000 MG CAPSULE PO SCH (08:58)
[2021-08-13] MEDS: ATORVASTATIN CALCIUM 40 MG TABLET PO SCH (08:58)
[2021-08-13 16:07] VITALS: BP 110/79
[2021-08-13] MEDS: QUEtiapine FUMARATE 100 MG TABLET PO PRN (17:36)
[2021-08-13] MEDS: QUEtiapine FUMARATE 200 MG TABLET PO SCH (21:00)
[2021-08-14] MEDS: ASPIRIN 81 MG CHEWABLE TABLET PO SCH (06:54)
[2021-08-14 09:00] VITALS: BP 119/64
[2021-08-14] MEDS: PANTOPRAZOLE SODIUM 40 MG DR TABLET PO SCH (09:02)
[2021-08-14] MEDS: QUEtiapine FUMARATE 25 MG TABLET PO SCH (09:02)
[2021-08-14] MEDS: ATORVASTATIN CALCIUM 40 MG TABLET PO SCH (09:02)
[2021-08-14] MEDS: OMEGA-3/DHA/EPA/FISH OIL 1,000 MG CAPSULE PO SCH (09:02)
[2021-08-14] MEDS: SACUBITRIL/VALSARTAN 24-26 MG TABLET PO SCH ×2 (09:02→17:39)
[2021-08-14] MEDS: CARVEDILOL 6.25 MG TABLET PO SCH ×2 (09:02→21:13)
[2021-08-14] MEDS: FUROSEMIDE 20 MG TABLET PO SCH (09:02)
[2021-08-14 14:59] LABS: COVID AG,FIA SOURCE NASOPHARYNGEAL
[2021-08-14 16:55] VITALS: BP 117/60
[2021-08-14] MEDS: QUEtiapine FUMARATE 100 MG TABLET PO PRN (17:39)
[2021-08-14] MEDS: QUEtiapine FUMARATE 200 MG TABLET PO SCH (21:13)
[2021-08-15] MEDS: HydrOXYzine PAMOATE 25 MG CAPSULE PO PRN ×2 (00:48→23:42)
[2021-08-15] MEDS: ASPIRIN 81 MG CHEWABLE TABLET PO SCH ×2 (06:50→10:05)
[2021-08-15 08:00] VITALS: BP 133/74
[2021-08-15] MEDS: OMEGA-3/DHA/EPA/FISH OIL 1,000 MG CAPSULE PO SCH (10:06)
[2021-08-15] MEDS: QUEtiapine FUMARATE 25 MG TABLET PO SCH (10:06)
[2021-08-15] MEDS: PANTOPRAZOLE SODIUM 40 MG DR TABLET PO SCH (10:06)
[2021-08-15] MEDS: ATORVASTATIN CALCIUM 40 MG TABLET PO SCH (10:06)
[2021-08-15] MEDS: FUROSEMIDE 20 MG TABLET PO SCH (10:06)
[2021-08-15] MEDS: SACUBITRIL/VALSARTAN 24-26 MG TABLET PO SCH ×2 (10:07→17:22)
[2021-08-15] MEDS: CARVEDILOL 6.25 MG TABLET PO SCH ×2 (10:07→20:09)
[2021-08-15 16:29] VITALS: BP 128/57
[2021-08-15] MEDS: QUEtiapine FUMARATE 200 MG TABLET PO SCH (20:09)
[2021-08-15 23:40] VITALS: BP 126/57
[2021-08-16] MEDS: ASPIRIN 81 MG CHEWABLE TABLET PO SCH (06:47)
[2021-08-16 08:32] VITALS: BP 113/55
[2021-08-16] MEDS: FUROSEMIDE 20 MG TABLET PO SCH (09:55)
[2021-08-16] MEDS: OMEGA-3/DHA/EPA/FISH OIL 1,000 MG CAPSULE PO SCH (09:55)
[2021-08-16] MEDS: PANTOPRAZOLE SODIUM 40 MG DR TABLET PO SCH (09:56)
[2021-08-16] MEDS: ATORVASTATIN CALCIUM 40 MG TABLET PO SCH (09:56)
[2021-08-16] MEDS: QUEtiapine FUMARATE 25 MG TABLET PO SCH (09:56)
[2021-08-16] MEDS: CARVEDILOL 6.25 MG TABLET PO SCH (09:57)
[2021-08-16] MEDS: SACUBITRIL/VALSARTAN 24-26 MG TABLET PO SCH (09:57)
[2021-08-16] MEDS ORDERED: QUET25TA36 PO (10:55)
[2021-08-16] MEDS ORDERED: QUET200T30 PO (10:55)
[2021-08-16] MEDS ORDERED: ASPI-1450 PO ×2 (12:11→12:38)
[2021-08-16] MEDS ORDERED: ATOR40TA28 PO ×2 (12:11→12:38)
[2021-08-16] MEDS ORDERED: SACU1TAB PO ×2 (12:11→12:38)
[2021-08-16] MEDS ORDERED: CARV6 PO ×2 (12:11→12:38)
[2021-08-16] MEDS ORDERED: OMEG-108 PO (12:15)
[2021-08-16] MEDS ORDERED: FURO20 PO (12:38)
[2021-08-16] MEDS ORDERED: QUET200T PO (18:23)
[2021-08-16] MEDS ORDERED: QUET25TA PO (18:23)
== END 2021-08-16 13:15 | disposition home or self-care (01) | DRG 885 ==
LOC: B2X 07-14 11:18 → 3EX 07-14 16:53 → 3EI 07-18 14:00 → 3EX 08-02 20:39
PROVIDERS: ADMIT Psychiatry & Neurology Psychiatry; ATTEND Psychiatry & Neurology Psychiatry
DX: F25.1 Schizoaffective disorder, depressive type (principal); I11.0 Hypertensive heart disease with heart failure; B19.20 Unspecified viral hepatitis C without hepatic coma; R45.851 Suicidal ideations; I42.9 Cardiomyopathy, unspecified; F15.10 Other stimulant abuse, uncomplicated; F32.A Depression, unspecified; E78.5 Hyperlipidemia, unspecified; Z20.822 Contact with and (suspected) exposure to COVID-19; I50.9 Heart failure, unspecified; J44.9 Chronic obstructive pulmonary disease, unspecified; K21.9 Gastro-esophageal reflux disease without esophagitis; F12.10 Cannabis abuse, uncomplicated; G47.30 Sleep apnea, unspecified; Y90.9 Presence of alcohol in blood, level not specified; F10.10 Alcohol abuse, uncomplicated; Z59.00 Homelessness unspecified; Z79.899 Other long term (current) drug therapy; Z88.8 Allergy status to other drugs, medicaments and biological substances; Z91.51 Personal history of suicidal behavior; Z23 Encounter for immunization
CPT/HCPCS: 80061; 83036; 84439; 84443; 87081; 90686; G0378; Q9967

== ENCOUNTER 2021-09-25 13:08 | Inpatient (IN) | payer MEDICARE, MEDICAID ==
[~2021-09-25] VITALS: Ht 172.7 cm; Wt 77.9 kg
[~2021-09-25 13:08] MED LIST changes: -AMLO-258 PO; +ASPI-1450 PO; +ATOR40TA28 PO; +CARV6 PO; -NALT50TA PO; -NALT50TA6 PO; +QUET200T PO; -QUET25TA36 PO; -QUET300T19 PO; -QUET300T2 PO; +SACU1TAB PO
[2021-09-25 14:05] LABS: BASOPHILS % (AUTO) 0.2 % (0.0-2.0); EOSINOPHILS % (AUTO) 1.6 % (1.0-6.0); HEMATOCRIT 39.6 % (41-53); HEMOGLOBIN 13.6 g/dL (13.5-17.5); LYMPHOCYTES # (AUTO) 1.2 K/uL (1.0-4.8); LYMPHOCYTES % (AUTO) 20.5 % (22.0-44.0); MEAN CORPUSCULAR HEMOGLOBIN 29.5 pg (26.0-34.0); MEAN CORPUSCULAR HGB CONC 34.3 G/dL (31.0-37.0); MEAN CORPUSCULAR VOLUME 86 fL (80-100); MONOCYTES # (AUTO) 0.5 K/uL (0.1-1.0); NEUTROPHILS # (AUTO) 4.2 K/uL (1.8-7.7); NEUTROPHILS % (AUTO) 69.7 % (40.0-70.0); PLATELET COUNT (AUTO) 177 K/uL (150-450); RED BLOOD CELL COUNT(AUTO) 4.62 MIL/uL (4.50-5.90)
[2021-09-25 14:12] LABS: ANION GAP 8 mmol/L (8-16); CALCIUM, TOTAL 8.7 mg/dL (8.8-10.5); CARBON DIOXIDE 31 mmol/L (22-29); CHLORIDE 102 mmol/L (98-107); CREATININE 1.14 mg/dL (0.60-1.30); GLOMERULAR FILTR. RATE CALC > 60 mL/min (>60); GLUCOSE,RANDOM 127 mg/dL (70-110); POTASSIUM 3.8 mmol/L (3.5-5.1); SODIUM SERUM 141 mmol/L (136-145); UREA NITROGEN, BLOOD 23 mg/dL (7-18)
[2021-09-25 14:14] LABS: AMPHET/METH SCREEN,URINE POSITIVE (NEGATIVE); BARBITURATE SCREEN, URINE NEGATIVE (NEGATIVE); BENZODIAZEPINES SCREEN,URINE NEGATIVE (NEGATIVE); CANNABINOID SCREEN,URINE NEGATIVE (NEGATIVE); COCAINE SCREEN,URINE NEGATIVE (NEGATIVE); METHADONE SCREEN, URINE NEGATIVE (NEGATIVE); OPIATE SCREEN,URINE NEGATIVE (NEGATIVE); PHENCYCLIDINE SCREEN,URINE NEGATIVE (NEGATIVE)
[2021-09-25 14:21] LABS: ALANINE AMINOTRANSFERASE 31 U/L (12-78); ALBUMIN 3.9 g/dL (3.4-5.0); ALKALINE PHOSPHATASE 96 U/L (46-116); ASPARTATE AMINOTRANSFERASE 34 U/L (15-37); BILIRUBIN,TOTAL 0.4 mg/dL (0.1-1.0); TOTAL PROTEIN, SERUM 7.5 g/dL (6.4-8.2)
[2021-09-25] MEDS ORDERED: ZOLPIDEM TARTRATE 10 MG TABLET PO PRN (16:00)
[2021-09-25 16:12] LABS: COVID AG,FIA SOURCE NASAL SWAB
[2021-09-25] MEDS ORDERED: QUEtiapine FUMARATE 100 MG TABLET PO PRN (16:15)
[2021-09-25 18:25] VITALS: BP 161/86
[2021-09-25] MEDS ORDERED: ACETAMINOPHEN 325 MG TABLET PO PRN (20:00)
[2021-09-25] MEDS ORDERED: NICOTINE 14 MG/24 HOUR PATCH TD PRN (20:00)
[2021-09-25] MEDS ORDERED: DOCUSATE SODIUM 100 MG CAPSULE PO PRN (20:00)
[2021-09-25] MEDS ORDERED: CloNIDine HCL 0.1 MG TABLET PO PRN (20:00)
[2021-09-25] MEDS ORDERED: MAGNESIUM HYDROXIDE SUSPENSION 30 ML UDCUP PO PRN (20:00)
[2021-09-25] MEDS ORDERED: GuaiFENesin/D-METHORPHAN [SUGAR-FREE] 200-20MG/10 ML SYRUP UDCUP PO PRN (20:00)
[2021-09-25] MEDS ORDERED: ONDANSETRON HCL 4 MG TABLET PO PRN (20:00)
[2021-09-25] MEDS ORDERED: LOPERAMIDE HCL 2 MG CAPSULE PO PRN (20:00)
[2021-09-25] MEDS ORDERED: ALBUTEROL SULFATE HFA 90 MCG/PUFF 8 GM INHALER IH PRN (20:00)
[2021-09-25] MEDS ORDERED: PETROLATUM,WHITE 28 GM JELLY TP PRN (20:00)
[2021-09-25] MEDS ORDERED: IBUPROFEN 400 MG TABLET PO PRN (20:00)
[2021-09-25] MEDS ORDERED: MAG HYDROX/AL HYDROX/SIMETH ES 30 ML SUSPENSION UDCUP PO PRN (20:00)
[2021-09-25] MEDS: CARVEDILOL 6.25 MG TABLET PO SCH (20:11)
[2021-09-25] MEDS: LORazepam 2 MG TABLET PO PRN (20:46)
[2021-09-26 01:10] VITALS: BP 150/83
[2021-09-26] MEDS: ASPIRIN 81 MG CHEWABLE TABLET PO SCH (06:33)
[2021-09-26] MEDS ORDERED: METOPROLOL TARTRATE 25 MG TABLET PO SCH (09:00)
[2021-09-26] MEDS ORDERED: FUROSEMIDE 40 MG TABLET PO SCH (09:00)
[2021-09-26] MEDS ORDERED: FUROSEMIDE 20 MG TABLET PO SCH (09:00)
[2021-09-26] MEDS: ATORVASTATIN CALCIUM 40 MG TABLET PO SCH (09:05)
[2021-09-26] MEDS: PANTOPRAZOLE SODIUM 40 MG DR TABLET PO SCH (09:05)
[2021-09-26] MEDS: CARVEDILOL 6.25 MG TABLET PO SCH ×2 (09:06→20:54)
[2021-09-26] MEDS: SACUBITRIL/VALSARTAN 24-26 MG TABLET PO SCH ×2 (09:06→16:56)
[2021-09-26] MEDS: FUROSEMIDE 40 MG TABLET PO SCH (09:07)
[2021-09-26 09:08] VITALS: BP 137/77
[2021-09-26] MEDS: FLUoxetine HCL 20 MG CAPSULE PO SCH (12:15)
[2021-09-26] MEDS: QUEtiapine FUMARATE 25 MG TABLET PO SCH (12:17)
[2021-09-26 16:21] VITALS: BP 110/75
[2021-09-26] MEDS: QUEtiapine FUMARATE 200 MG TABLET PO SCH (20:54)
[2021-09-27] MEDS: ASPIRIN 81 MG CHEWABLE TABLET PO SCH (06:33)
[2021-09-27 09:00] VITALS: BP 107/55
[2021-09-27] MEDS: QUEtiapine FUMARATE 25 MG TABLET PO SCH (09:39)
[2021-09-27] MEDS: PANTOPRAZOLE SODIUM 40 MG DR TABLET PO SCH (09:39)
[2021-09-27] MEDS: CARVEDILOL 6.25 MG TABLET PO SCH ×2 (09:40→20:07)
[2021-09-27] MEDS: SACUBITRIL/VALSARTAN 24-26 MG TABLET PO SCH ×2 (09:40→16:49)
[2021-09-27] MEDS: FUROSEMIDE 40 MG TABLET PO SCH (09:40)
[2021-09-27] MEDS: FLUoxetine HCL 20 MG CAPSULE PO SCH (09:40)
[2021-09-27] MEDS: ATORVASTATIN CALCIUM 40 MG TABLET PO SCH (09:40)
[2021-09-27 16:44] VITALS: BP 118/63
[2021-09-27] MEDS: QUEtiapine FUMARATE 200 MG TABLET PO SCH (20:07)
[2021-09-28] MEDS: ASPIRIN 81 MG CHEWABLE TABLET PO SCH (06:37)
[2021-09-28 08:10] VITALS: BP 95/65
[2021-09-28] MEDS: PANTOPRAZOLE SODIUM 40 MG DR TABLET PO SCH (08:40)
[2021-09-28] MEDS: FLUoxetine HCL 20 MG CAPSULE PO SCH (08:40)
[2021-09-28] MEDS: ATORVASTATIN CALCIUM 40 MG TABLET PO SCH (08:40)
[2021-09-28] MEDS: QUEtiapine FUMARATE 25 MG TABLET PO SCH (08:40)
[2021-09-28] MEDS: FUROSEMIDE 40 MG TABLET PO SCH (08:40)
[2021-09-28] MEDS: SACUBITRIL/VALSARTAN 24-26 MG TABLET PO SCH ×2 (08:40→16:19)
[2021-09-28] MEDS: CARVEDILOL 6.25 MG TABLET PO SCH ×2 (09:00→20:35)
[2021-09-28 17:17] VITALS: BP 124/84
[2021-09-28] MEDS: QUEtiapine FUMARATE 200 MG TABLET PO SCH (20:35)
[2021-09-29 05:00] VITALS: BP 108/51
[2021-09-29] MEDS: ASPIRIN 81 MG CHEWABLE TABLET PO SCH (07:05)
[2021-09-29] MEDS: ATORVASTATIN CALCIUM 40 MG TABLET PO SCH (09:40)
[2021-09-29] MEDS: SACUBITRIL/VALSARTAN 24-26 MG TABLET PO SCH ×2 (09:40→16:29)
[2021-09-29] MEDS: CARVEDILOL 6.25 MG TABLET PO SCH ×2 (09:41→20:01)
[2021-09-29] MEDS: FUROSEMIDE 40 MG TABLET PO SCH (09:41)
[2021-09-29] MEDS: FLUoxetine HCL 20 MG CAPSULE PO SCH (09:41)
[2021-09-29] MEDS: QUEtiapine FUMARATE 25 MG TABLET PO SCH (09:43)
[2021-09-29] MEDS: PANTOPRAZOLE SODIUM 40 MG DR TABLET PO SCH (09:43)
[2021-09-29 09:58] VITALS: BP 115/56
[2021-09-29 16:29] VITALS: BP 106/52
[2021-09-29] MEDS: QUEtiapine FUMARATE 200 MG TABLET PO SCH (20:01)
[2021-09-30 03:44] VITALS: BP 96/61
[2021-09-30] MEDS: ASPIRIN 81 MG CHEWABLE TABLET PO SCH (06:36)
[2021-09-30 08:05] VITALS: BP 133/72
[2021-09-30] MEDS: SACUBITRIL/VALSARTAN 24-26 MG TABLET PO SCH ×2 (08:25→16:36)
[2021-09-30] MEDS: FLUoxetine HCL 20 MG CAPSULE PO SCH (08:25)
[2021-09-30] MEDS: QUEtiapine FUMARATE 25 MG TABLET PO SCH (08:25)
[2021-09-30] MEDS: PANTOPRAZOLE SODIUM 40 MG DR TABLET PO SCH (08:25)
[2021-09-30] MEDS: ATORVASTATIN CALCIUM 40 MG TABLET PO SCH (08:26)
[2021-09-30] MEDS: FUROSEMIDE 40 MG TABLET PO SCH (08:26)
[2021-09-30] MEDS: CARVEDILOL 6.25 MG TABLET PO SCH ×2 (08:26→20:17)
[2021-09-30 16:00] VITALS: BP 116/64
[2021-09-30] MEDS: QUEtiapine FUMARATE 200 MG TABLET PO SCH (20:18)
[2021-10-01] MEDS: ASPIRIN 81 MG CHEWABLE TABLET PO SCH (06:50)
[2021-10-01 08:05] VITALS: BP 115/68
[2021-10-01] MEDS: SACUBITRIL/VALSARTAN 24-26 MG TABLET PO SCH ×2 (09:13→16:10)
[2021-10-01] MEDS: ATORVASTATIN CALCIUM 40 MG TABLET PO SCH (09:13)
[2021-10-01] MEDS: PANTOPRAZOLE SODIUM 40 MG DR TABLET PO SCH (09:13)
[2021-10-01] MEDS: QUEtiapine FUMARATE 25 MG TABLET PO SCH (09:13)
[2021-10-01] MEDS: FLUoxetine HCL 20 MG CAPSULE PO SCH (09:13)
[2021-10-01] MEDS: CARVEDILOL 6.25 MG TABLET PO SCH ×2 (09:14→20:04)
[2021-10-01] MEDS: FUROSEMIDE 40 MG TABLET PO SCH (09:15)
[2021-10-01 17:09] VITALS: BP 105/73
[2021-10-01] MEDS: QUEtiapine FUMARATE 200 MG TABLET PO SCH (20:04)
[2021-10-02] MEDS: ASPIRIN 81 MG CHEWABLE TABLET PO SCH (06:35)
[2021-10-02 08:05] VITALS: BP 134/67
[2021-10-02] MEDS: CARVEDILOL 6.25 MG TABLET PO SCH ×2 (08:53→20:37)
[2021-10-02] MEDS: ATORVASTATIN CALCIUM 40 MG TABLET PO SCH (08:53)
[2021-10-02] MEDS: QUEtiapine FUMARATE 25 MG TABLET PO SCH (08:53)
[2021-10-02] MEDS: FUROSEMIDE 40 MG TABLET PO SCH (08:53)
[2021-10-02] MEDS: PANTOPRAZOLE SODIUM 40 MG DR TABLET PO SCH (08:53)
[2021-10-02] MEDS: FLUoxetine HCL 20 MG CAPSULE PO SCH (08:53)
[2021-10-02] MEDS: SACUBITRIL/VALSARTAN 24-26 MG TABLET PO SCH ×2 (08:53→16:55)
[2021-10-02 14:40] LABS: COVID AG,FIA SOURCE NASAL SWAB
[2021-10-02 16:00] VITALS: BP 97/60
[2021-10-02 20:35] VITALS: BP 121/80
[2021-10-02] MEDS: QUEtiapine FUMARATE 200 MG TABLET PO SCH (20:37)
[2021-10-02] MEDS: LORazepam 2 MG TABLET PO PRN (22:56)
[2021-10-03] MEDS: ASPIRIN 81 MG CHEWABLE TABLET PO SCH (06:32)
[2021-10-03 08:30] VITALS: BP 109/70
[2021-10-03] MEDS: PANTOPRAZOLE SODIUM 40 MG DR TABLET PO SCH (09:02)
[2021-10-03] MEDS: FLUoxetine HCL 20 MG CAPSULE PO SCH (09:02)
[2021-10-03] MEDS: QUEtiapine FUMARATE 25 MG TABLET PO SCH (09:02)
[2021-10-03] MEDS: ATORVASTATIN CALCIUM 40 MG TABLET PO SCH (09:03)
[2021-10-03] MEDS: CARVEDILOL 6.25 MG TABLET PO SCH ×2 (09:03→20:37)
[2021-10-03] MEDS: SACUBITRIL/VALSARTAN 24-26 MG TABLET PO SCH ×2 (09:03→16:51)
[2021-10-03] MEDS: FUROSEMIDE 40 MG TABLET PO SCH (09:03)
[2021-10-03 16:45] VITALS: BP 112/62
[2021-10-03 17:40] VITALS: BP 151/81
[2021-10-03] MEDS: LORazepam 2 MG TABLET PO PRN (17:43)
[2021-10-03] MEDS: QUEtiapine FUMARATE 200 MG TABLET PO SCH (20:37)
[2021-10-04] MEDS: ASPIRIN 81 MG CHEWABLE TABLET PO SCH (06:52)
[2021-10-04 08:30] VITALS: BP 143/69
[2021-10-04] MEDS: FUROSEMIDE 40 MG TABLET PO SCH (08:55)
[2021-10-04] MEDS: QUEtiapine FUMARATE 25 MG TABLET PO SCH (08:55)
[2021-10-04] MEDS: SACUBITRIL/VALSARTAN 24-26 MG TABLET PO SCH ×2 (08:55→16:40)
[2021-10-04] MEDS: ATORVASTATIN CALCIUM 40 MG TABLET PO SCH (08:55)
[2021-10-04] MEDS: FLUoxetine HCL 20 MG CAPSULE PO SCH (08:55)
[2021-10-04] MEDS: PANTOPRAZOLE SODIUM 40 MG DR TABLET PO SCH (08:56)
[2021-10-04] MEDS: CARVEDILOL 6.25 MG TABLET PO SCH ×2 (08:56→20:30)
[2021-10-04 17:01] VITALS: BP 119/62
[2021-10-04] MEDS: QUEtiapine FUMARATE 200 MG TABLET PO SCH (20:30)
[2021-10-05] MEDS: ASPIRIN 81 MG CHEWABLE TABLET PO SCH (06:30)
[2021-10-05 08:30] VITALS: BP 130/72
[2021-10-05] MEDS: PANTOPRAZOLE SODIUM 40 MG DR TABLET PO SCH (09:16)
[2021-10-05] MEDS: QUEtiapine FUMARATE 25 MG TABLET PO SCH (09:16)
[2021-10-05] MEDS: FLUoxetine HCL 20 MG CAPSULE PO SCH (09:16)
[2021-10-05] MEDS: CARVEDILOL 6.25 MG TABLET PO SCH ×2 (09:17→20:06)
[2021-10-05] MEDS: FUROSEMIDE 40 MG TABLET PO SCH (09:17)
[2021-10-05] MEDS: ATORVASTATIN CALCIUM 40 MG TABLET PO SCH (09:18)
[2021-10-05] MEDS: SACUBITRIL/VALSARTAN 24-26 MG TABLET PO SCH ×2 (09:18→16:13)
[2021-10-05 16:27] VITALS: BP 117/70
[2021-10-05] MEDS: QUEtiapine FUMARATE 200 MG TABLET PO SCH (20:06)
[2021-10-06] MEDS: ASPIRIN 81 MG CHEWABLE TABLET PO SCH (06:50)
[2021-10-06] MEDS: PANTOPRAZOLE SODIUM 40 MG DR TABLET PO SCH (08:16)
[2021-10-06] MEDS: SACUBITRIL/VALSARTAN 24-26 MG TABLET PO SCH (08:17)
[2021-10-06] MEDS: ATORVASTATIN CALCIUM 40 MG TABLET PO SCH (08:17)
[2021-10-06] MEDS: QUEtiapine FUMARATE 25 MG TABLET PO SCH (08:17)
[2021-10-06] MEDS: FUROSEMIDE 40 MG TABLET PO SCH (08:17)
[2021-10-06] MEDS: FLUoxetine HCL 20 MG CAPSULE PO SCH (08:17)
[2021-10-06] MEDS: CARVEDILOL 6.25 MG TABLET PO SCH (08:18)
[2021-10-06 09:00] VITALS: BP 113/53
[2021-10-06] MEDS ORDERED: QUET200T30 PO (10:15)
[2021-10-06] MEDS ORDERED: PROZ20 PO (10:15)
[2021-10-06] MEDS ORDERED: QUET25TA36 PO (10:15)
== END 2021-10-06 14:53 | disposition home or self-care (01) | DRG 885 ==
LOC: EMS 13:15 → 3EX 16:00
PROVIDERS: ADMIT Psychiatry & Neurology Psychiatry; ATTEND Psychiatry & Neurology Psychiatry
DX: F25.1 Schizoaffective disorder, depressive type (principal); I11.0 Hypertensive heart disease with heart failure; R45.851 Suicidal ideations; F15.10 Other stimulant abuse, uncomplicated; F10.10 Alcohol abuse, uncomplicated; E78.00 Pure hypercholesterolemia, unspecified; E78.5 Hyperlipidemia, unspecified; F41.9 Anxiety disorder, unspecified; I50.9 Heart failure, unspecified; J44.9 Chronic obstructive pulmonary disease, unspecified; Z20.822 Contact with and (suspected) exposure to COVID-19; F17.210 Nicotine dependence, cigarettes, uncomplicated; Z91.51 Personal history of suicidal behavior; Z88.8 Allergy status to other drugs, medicaments and biological substances
CPT/HCPCS: 80053; 85025; 99285; G0378; G0480; Q9967